=== PATIENT | female | born 1935 | race Caucasian/White ===

== ENCOUNTER → 2023-12-12 10:47 | Outpatient (REF) | payer MEDICARE, BC, SELFPAY ==
[2023-12-12 12:33] LABS: NT-proBNP 1240 pg/ml
[2023-12-12 13:20] LABS: ALT (SGPT) < 10 U/L (0-35); AST (SGOT) 16 U/L (14-36); Albumin 4.3 g/dl (3.5-5.0); Alkaline Phosphatase 121 U/L (38-126); Blood Urea Nitrogen 19 mg/dl (7-17); Calcium 10.5 mg/dl (8.4-10.2); Carbon Dioxide 27 mmol/L (22-30); Chloride 105 mmol/L (98-107); Glucose 93 mg/dl (70-99); Potassium 4.2 mmol/L (3.5-5.1); Sodium 137 mmol/L (135-145); Total Bilirubin 1.4 mg/dl (0.2-1.3); Total Protein 6.9 g/dl (6.3-8.2); eGFR > 60.00
[2023-12-12 13:33] LABS: Vitamin D, 25-OH*** 62.2 ng/mL (30-80)
[2023-12-14 02:31] LABS: Beta-2-Microglobulin 4.2 mg/L (<=3.0)
[2023-12-14 22:33] LABS: Alpha 1 Globulin 0.28 g/dL (0.19-0.46); Alpha 2 Globulin 0.69 g/dL (0.48-1.05); Free Kappa Light Chains,Quant 104.47 mg/L (3.30-19.40); Free Lambda Light Chains,Quant 13.04 mg/L (5.71-26.30); IgA 112 mg/dL (68-408); IgG 976 mg/dL (768-1632); IgM 60 mg/dL (35-263); Immunofixation Electrophoresis IFE Done; Kappa/Lambda Fr Light Ratio 8.01 (0.26-1.65); Monoclonal Protein 0.26 g/dL (<=0.00); Total Protein-Electrophoresis 6.8 g/dL (6.3-8.2)
== END ==
LOC: REG 10:47
PROVIDERS: ATTENDING PHYSICIAN Internal Medicine Hematology & Oncology; FAMILY PHYSICIAN Internal Medicine Cardiovascular Disease; REFERRING PHYSICIAN Specialist
DX: D47.2 Monoclonal gammopathy (principal); M81.0 Age-related osteoporosis without current pathological fracture; N20.0 Calculus of kidney; I10 Essential (primary) hypertension
CPT/HCPCS: 36415; 74018; 80053; 82232; 82306; 82784; 83521; 83880; 84155; 84165; 86334

== ENCOUNTER → 2024-01-16 08:44 | Outpatient (REF) | payer MEDICARE, BC, SELFPAY ==
[2024-01-16 10:13] LABS: % Basophils 1.1 % (0-2); % Eosinophils 5.6 % (0-6); % Immature Granulocytes 0.3 % (0-0.5); % Lymphocytes 21.8 % (20.5-51.1); % Monocytes 9.1 % (1.7-9.3); % Neutrophils 62.1 % (42.2-75.2); Absolute Basophils 0.1 10^3/uL (0-0.2); Absolute Eosinophils 0.4 10^3/uL (0-0.7); Absolute Lymphocytes 1.4 10^3/uL (1.2-3.4); Absolute Monocytes 0.6 10^3/uL (0.1-0.6); Hematocrit 38.3 % (37.0-47.0); Hemoglobin 12.9 g/dL (12.0-16.0); Mean Corp Hgb Conc. 33.7 g/dL (33.0-37.0); Mean Corpuscular Hgb 27.8 pg (27.0-31.0); Mean Corpuscular Volume 82.5 fL (81.0-99.0); Mean Platelet Volume 11.6 fL (7.4-10.4); Nucleated Red Blood Cells % 0 %; Platelet Count 144 10^3/uL (130-400); Red Blood Cell Count 4.64 10^6/uL (4.20-5.40); Red Cell Dist. Width 15.9 % (11.5-14.5); White Blood Cell Count 6.5 10^3/uL (4.8-10.8)
[2024-01-16 10:46] LABS: ALT (SGPT) < 10 U/L (0-35); AST (SGOT) 16 U/L (14-36); Alkaline Phosphatase 110 U/L (38-126); Blood Urea Nitrogen 21 mg/dl (7-17); Calcium 10.4 mg/dl (8.4-10.2); Carbon Dioxide 26 mmol/L (22-30); Chloride 104 mmol/L (98-107); Glucose 102 mg/dl (70-99); Potassium 3.5 mmol/L (3.5-5.1); Sodium 139 mmol/L (135-145); Total Bilirubin 1.2 mg/dl (0.2-1.3); Total Protein 6.5 g/dl (6.3-8.2); eGFR > 60.00
== END ==
LOC: REG 08:44
PROVIDERS: ATTENDING PHYSICIAN Internal Medicine Hematology & Oncology; FAMILY PHYSICIAN Family Medicine
DX: D47.2 Monoclonal gammopathy (principal); M81.0 Age-related osteoporosis without current pathological fracture
CPT/HCPCS: 36415; 80053; 85025

== ENCOUNTER → 2024-02-02 16:36 | Outpatient (REF) | payer MEDICARE, BC, SELFPAY ==
[2024-02-02 17:37] LABS: % Basophils 1.1 % (0-2); % Eosinophils 3.5 % (0-6); % Immature Granulocytes 0.6 % (0-0.5); % Lymphocytes 21.6 % (20.5-51.1); % Monocytes 11.4 % (1.7-9.3); % Neutrophils 61.8 % (42.2-75.2); Absolute Basophils 0.1 10^3/uL (0-0.2); Absolute Eosinophils 0.3 10^3/uL (0-0.7); Absolute Lymphocytes 1.5 10^3/uL (1.2-3.4); Absolute Monocytes 0.8 10^3/uL (0.1-0.6); Absolute Neutrophils 4.4 10^3/uL (1.4-6.5); Hematocrit 37.9 % (37.0-47.0); Hemoglobin 12.5 g/dL (12.0-16.0); Mean Corpuscular Hgb 27.4 pg (27.0-31.0); Mean Corpuscular Volume 82.9 fL (81.0-99.0); Mean Platelet Volume 11.1 fL (7.4-10.4); Nucleated Red Blood Cells % 0 %; Platelet Count 206 10^3/uL (130-400); Red Blood Cell Count 4.57 10^6/uL (4.20-5.40); Red Cell Dist. Width 15.2 % (11.5-14.5); White Blood Cell Count 7.1 10^3/uL (4.8-10.8)
[2024-02-02 17:53] LABS: ALT (SGPT) < 10 U/L (0-35); AST (SGOT) 14 U/L (14-36); Albumin 4.2 g/dl (3.5-5.0); Alkaline Phosphatase 104 U/L (38-126); Blood Urea Nitrogen 18 mg/dl (7-17); Calcium 10.7 mg/dl (8.4-10.2); Carbon Dioxide 28 mmol/L (22-30); Chloride 100 mmol/L (98-107); Glucose 96 mg/dl (70-99); Potassium 3.9 mmol/L (3.5-5.1); Sodium 134 mmol/L (135-145); Total Bilirubin 1.2 mg/dl (0.2-1.3); Total Protein 6.6 g/dl (6.3-8.2); eGFR > 60.00
== END ==
LOC: REG 16:36
PROVIDERS: ATTENDING PHYSICIAN Physician Assistant Medical; FAMILY PHYSICIAN Family Medicine
DX: R53.1 Weakness (principal); G93.39 Other post infection and related fatigue syndromes; U09.9 Post COVID-19 condition, unspecified; R05.3 Chronic cough
CPT/HCPCS: 36415; 71046; 80053; 85025

== ENCOUNTER 2024-05-11 19:52 | Emergency (ER) | payer MEDICARE, BC, SELFPAY ==
[2024-05-11 20:00] VITALS: BP 141/71
--- NOTE | 2024-05-11 22:00 | ED.GENMED ---
History of Present Illness
General
Chief Complaint: Nose Bleed
Source: patient and family
Exam Limitations: none
Time Seen by Provider: 05/11/24 21:36
Nursing documentation reviewed up to this point in time: agreed with
History of Present Illness
History of Present Illness:
88-year-old female presents to the emergency department complaining of nosebleed from her left nostril, she is on Eliquis. This began 1 to 2 hours ago. She denies any difficulty breathing.
Past History
Past History
ED Past Medical History: Arrthythmia (Atrial fibrillation), Asthma, GERD, HTN, Hypercholesterolemia and Other (Parkinson's)
ED Past Surgical History: Cardiac (Pacemaker, Loop Monitor), Orthopedic and Urological
Social History
Tobacco: Non-smoker
Alcohol: None
Personal:
Living: with family
Review of Systems
Review of Systems
Allergies reviewed?: Yes
All Other Systems: Not applicable
Constitutional: Reports no symptoms
EENT: Reports other (Nosebleed)
Respiratory: Reports no symptoms; Denies cough or trouble breathing
Cardiac: Reports no symptoms
ABD/GI: Reports no symptoms
: Reports no symptoms
Musculoskeletal: Reports no symptoms
Skin: Reports no symptoms
Neurological: Reports no symptoms
Endocrine: Reports no symptoms
Hematologic/Lymphatic: Reports no symptoms
Psychiatric: Reports no symptoms
Phy Exam
Physical Exam
Physical Exam:
88-year-old female with no respiratory distress, erythema at left nare, no active bleeding noted
Course
Vital Signs
Initial and Last Documented VS:
Initial Vital Signs
Temp Pulse Resp BP Pulse Ox
98.0 F 63 20 141/71 96
05/11/24 20:00 05/11/24 20:00 05/11/24 20:00 05/11/24 20:00 05/11/24 20:00
Last Documented Vital Signs
Temp Pulse Resp BP Pulse Ox
98.0 F 60 20 141/55 99
05/11/24 20:00 05/11/24 22:50 05/11/24 22:50 05/11/24 22:50 05/11/24 22:50
Procedures
Nosebleed
Drug treatment: Lidocaine and Epinephrine
Treatment: local pressure applied
Post treatment bleeding: none- good control
MDM/Problems Addressed
Differential Diagnosis Includes:
Posterior epistaxis, anterior epistaxis
MDM/Problems Addressed:
88-year-old female with epistaxis, resolved with pressure, epinephrine and lidocaine. Patient will hold off on Eliquis for 2 days.
Chronic conditions affecting care: Arrhythmia
Acute Exacerbation and/or Progression of Chronic Illness: Arrhythmia and Other (Anticoagulation state)
*Pulse Oximetry
Patient hypoxic: no
*Critical Care Note
Total Time (30-74mins, 75-104mins- exclusive of procedures): Not Applicable
Patient Management
Social determinants of health affecting care: Living situation and Strong social support
Escalation/DeEscalation of care consider admission/obs:
Admit not indicated
ED Attending Note
-
Portions of this chart may have been created with voice recognition software.� Occasional wrong word or��sound alike� substitutions may have occurred due to the inherent limitations of voice recognition software.
Discharge Plan
Departure
Patient Disposition: Home (Routine Discharge)
Date of Disposition: 05/11/24
Time of Disposition: 23:02
Patient with high blood pressure during this ER visit?: Yes
Condition: Good
Discharge Problem:
Acute anterior epistaxis
Instructions: Nosebleeds (DC), BLOOD PRESSURE
Prescriptions:
No Action
pramipexole 0.5 MG tablet
0.5 mg PO BID
sertraline 25 MG tablet
25 mg PO DAILY
montelukast 10 MG tablet
10 mg PO QPM
Eliquis 5 MG tablet
5 mg PO BID
furosemide 40 MG tablet
20 mg PO DAILY
carvedilol [Coreg] 25 MG tablet
25 mg PO BID
atorvastatin 10 MG tablet
10 mg PO Q48H
amlodipine 2.5 MG tablet
2.5 mg PO DAILY@1300
cyanocobalamin (vitamin B-12) 1,000 MCG/ML solution
1,000 mcg SC MONTHLY
Rx Instructions:
first of each month
melatonin 5 MG tablet
5 mg PO HSPRN PRN (Reason: sleep)
sennosides-docusate sodium [Senexon-S] 8.6-50 mg tablet
1 tab PO DAILYPRN PRN (Reason: constipation)
acetaminophen [Pain Reliever ES(acetaminophn)] 500 mg tablet
1,000 mg PO Q8HPRN PRN (Reason: arthritic pain)
pantoprazole [Protonix] 40 mg Tablet,Delayed Release (Dr/Ec)
20 mg PO DAILY
lidocaine [Aspercreme (lidocaine)] 4 % adhesive patch,medicated
1 patch topical DAILYPRN PRN (Reason: lower back pains)
Rx Instructions:
apply to left shoulder
levalbuterol HCl 1.25 mg/3 mL Solution For Nebulization
1.25 mg INHALATION R BID
Jardiance 10 mg Tablet
10 mg PO DAILY
carbidopa-levodopa 25-100 mg Tablet
1.5 tab PO QID
levofloxacin 250 mg tablet
250 mg PO DAILY 2 Days Qty: 2 0RF
Referrals:
Lisset Julien MD [Family Provider] - Call in 1-3 days for appt
Jarret Riddle MD [Active] - Call in 1-3 days for appt
Interventions
Interventions:
*Risk Screen - Suicide Last Done: 05/11/24 19:54
*General Assessment Last Done: 05/11/24 20:00
*Neglect/Abuse Screening Last Done: 05/11/24 20:00
ED-EENT Assessment Last Done: 05/11/24 20:12
Discharge Date and Time
Print Language: YAKUT
[2024-05-11 22:50] VITALS: BP 141/55
[2024-05-11 23:21] VITALS: BP 147/78
== END 2024-05-11 23:35 | disposition home or self-care (01) ==
LOC: EMR 19:52
PROVIDERS: EMERGENCY PHYSICIAN Emergency Medicine; FAMILY PHYSICIAN Family Medicine
DX: R04.0 Epistaxis (principal); I48.91 Unspecified atrial fibrillation; G20.A1 Parkinson's disease without dyskinesia, without mention of fluctuations; E78.00 Pure hypercholesterolemia, unspecified; J45.909 Unspecified asthma, uncomplicated; K21.9 Gastro-esophageal reflux disease without esophagitis; G43.909 Migraine, unspecified, not intractable, without status migrainosus; I11.0 Hypertensive heart disease with heart failure; I50.9 Heart failure, unspecified; G47.30 Sleep apnea, unspecified; M19.90 Unspecified osteoarthritis, unspecified site; M79.7 Fibromyalgia; E07.9 Disorder of thyroid, unspecified; D64.9 Anemia, unspecified; Z79.01 Long term (current) use of anticoagulants; Z95.0 Presence of cardiac pacemaker; Z96.652 Presence of left artificial knee joint
CPT/HCPCS: 99282; 30901

== ENCOUNTER → 2024-05-19 16:33 | Outpatient (REF) | payer MEDICARE, BC, SELFPAY ==
[2024-05-19 17:40] LABS: % Basophils 0.9 % (0-2); % Eosinophils 5.7 % (0-6); % Immature Granulocytes 0.3 % (0-0.5); % Lymphocytes 23.9 % (20.5-51.1); % Neutrophils 58.2 % (42.2-75.2); Absolute Basophils 0.1 10^3/uL (0-0.2); Absolute Eosinophils 0.4 10^3/uL (0-0.7); Absolute Lymphocytes 1.5 10^3/uL (1.2-3.4); Absolute Monocytes 0.7 10^3/uL (0.1-0.6); Absolute Neutrophils 3.7 10^3/uL (1.4-6.5); Hematocrit 39.4 % (37.0-47.0); Mean Corpuscular Hgb 27.9 pg (27.0-31.0); Mean Corpuscular Volume 84.5 fL (81.0-99.0); Nucleated Red Blood Cells % 0 %; Platelet Count 157 10^3/uL (130-400); Red Blood Cell Count 4.66 10^6/uL (4.20-5.40); Red Cell Dist. Width 14.9 % (11.5-14.5); White Blood Cell Count 6.4 10^3/uL (4.8-10.8)
[2024-05-19 18:04] LABS: NT-proBNP 2110 pg/ml
[2024-05-19 18:07] LABS: Blood Urea Nitrogen 20 mg/dl (7-17); Calcium 10.2 mg/dl (8.4-10.2); Carbon Dioxide 27 mmol/L (22-30); Chloride 100 mmol/L (98-107); Glucose 89 mg/dl (70-99); Potassium 4.4 mmol/L (3.5-5.1); Sodium 141 mmol/L (135-145); eGFR 54.87
[2024-05-19 18:18] LABS: Free T4 1.11 ng/dl (0.78-2.19)
[2024-05-19 18:33] LABS: TSH 3.07 uIU/ml (0.47-4.68)
== END ==
LOC: REG 16:33
PROVIDERS: ATTENDING PHYSICIAN Internal Medicine Cardiovascular Disease; FAMILY PHYSICIAN Family Medicine
DX: I95.1 Orthostatic hypotension (principal); E21.3 Hyperparathyroidism, unspecified; E83.52 Hypercalcemia; I10 Essential (primary) hypertension; I50.32 Chronic diastolic (congestive) heart failure; I48.91 Unspecified atrial fibrillation
CPT/HCPCS: 36415; 80048; 83880; 84439; 84443; 85025

== ENCOUNTER 2024-08-03 16:40 | Inpatient (IN) | payer MEDICARE, BC, SELFPAY ==
[2024-08-03] VITALS (11 sets, daily range): BP systolic 103–155; BP diastolic 51–113; BMI 31.5
[2024-08-03] MEDS: NSS 500 IV (11:59)
[2024-08-03] MEDS: ZOFRAN 4 MG IV (11:59)
[2024-08-03] MEDS: TYLENOL 1000 MG PO (12:00)
[2024-08-03 12:29] LABS: ALT (SGPT) < 10 U/L (0-35); AST (SGOT) 13 U/L (14-36); Albumin 3.8 g/dl (3.5-5.0); Alkaline Phosphatase 60 U/L (38-126); Blood Urea Nitrogen 18 mg/dl (7-17); Carbon Dioxide 25 mmol/L (22-30); Chloride 104 mmol/L (98-107); Glucose 127 mg/dl (70-99); Potassium 4.3 mmol/L (3.5-5.1); Sodium 138 mmol/L (135-145); Total Bilirubin 2.3 mg/dl (0.2-1.3); Total Protein 6.1 g/dl (6.3-8.2); eGFR > 60.00
[2024-08-03 12:40] LABS: COVID-19 Antigen Negative (Negative)
[2024-08-03 12:42] LABS: % Basophils 0.2 % (0-2); % Immature Granulocytes 0.4 % (0-0.5); % Lymphocytes 7.5 % (20.5-51.1); % Monocytes 8.5 % (1.7-9.3); % Neutrophils 83.4 % (42.2-75.2); Absolute Immature Granulocytes 0.1 10^3/uL (0-0.05); Absolute Lymphocytes 0.9 10^3/uL (1.2-3.4); Absolute Neutrophils 9.5 10^3/uL (1.4-6.5); Hematocrit 38.4 % (37.0-47.0); Hemoglobin 12.8 g/dL (12.0-16.0); Mean Corp Hgb Conc. 33.3 g/dL (33.0-37.0); Mean Corpuscular Hgb 28.6 pg (27.0-31.0); Mean Corpuscular Volume 85.7 fL (81.0-99.0); Mean Platelet Volume 11.7 fL (7.4-10.4); Nucleated Red Blood Cells % 0 %; Platelet Count 102 10^3/uL (130-400); Red Blood Cell Count 4.48 10^6/uL (4.20-5.40); Red Cell Dist. Width 16.4 % (11.5-14.5); White Blood Cell Count 11.4 10^3/uL (4.8-10.8)
[2024-08-03 13:35] LABS: Urine Albumin 1+ (Neg - Trace); Urine Bilirubin 1+ (Negative); Urine Character Very Cloudy (Clear); Urine Color Yellow; Urine Glucose 3+ (Negative); Urine Ketone Trace (Negative); Urine Leukocyte 2+ (Negative); Urine Nitrite Positive (Negative); Urine Occult Blood 2+ (Negative); Urine Urobilinogen 2+ (Neg - 1+)
[2024-08-03 13:54] LABS: Urine Bacteria Many (Negative); Urine White Cell >100 /HPF (0-5)
--- NOTE | 2024-08-03 14:36 | ED.GENMED ---
History of Present Illness
General
Chief Complaint: Swelling
Source: patient and family
Exam Limitations: none
Time Seen by Provider: 08/03/24 11:18
Nursing documentation reviewed up to this point in time: agreed with
History of Present Illness
History of Present Illness:
88-year-old female with past medical history of CHF hypertension hyperlipidemia pacemaker in place presenting to the emergency department today with concerns left-sided facial swelling starting yesterday some nausea as well pain to her left ear.
Also has felt lightheaded generally weak and tired. Denies any abdominal pain chest pain shortness of breath.
Past History
Past History
ED Past Medical History: Arrthythmia (Atrial fibrillation), Asthma, GERD, HTN, Hypercholesterolemia and Other (Parkinson's)
ED Past Surgical History: Cardiac (Pacemaker, Loop Monitor), Orthopedic and Urological
Social History
Tobacco: Non-smoker
Alcohol: None
Personal:
Living: with family
Review of Systems
Review of Systems
Allergies reviewed?: Yes
All Other Systems: ROS reviewed and negative except as documented in HPI and ROS
Phy Exam
Physical Exam
Physical Exam:
GENERAL: Alert , in no apparent distress
EYE: pupils equal and reactive
NECK: Supple, no significant adenopathy.
ENT: Significant swelling to the left anterior lateral mandibular region roughly 5 cm in diameter not specifically indurated or fluctuant somewhat thin to mucosa looks normal firm and tender to palpation o/p clr, mmm.
CARDIAC: Regular rate and rhythm .
LUNGS: Clear breath sounds bilaterally, no acute respiratory distress, no wheezes/rales/rhonchi
ABDOMEN: Soft, without focal tenderness, no r/g, no cvat
NEUROLOGICAL: Alert and oriented, no focal neuro deficits
SKIN: Warm and dry, skin intact.
MUSCULOSKELETAL: No edema, well perfused.
PSYCH: Normal and appropriate interaction.
Scores
Heart Failure Risk
Heart Failure Risk Score: Not Applicable
Course
Orders/Labs/Results
Orders:
Orders
08/03/24 11:32
EKG [Electrocardiogram (*1)] Urgent
Reason for Study: Fatigue / Weakness
CT Facial Bones W/ Iv Contrast Urgent
Comment:
Reason For Exam: left facial sweling
EKG- Treatment ONCE
0.9% Sodium Chloride 500 ml [Nss] 500 ml IV BOLUS
Ondansetron Injectable [Zofran] 4 mg IV NOW STA
08/03/24 11:38
CBC/With Diff [Complete Blood Count/With Diff] Urgent
CMP [Comprehensive Metabolic Panel] Urgent
Troponin I Urgent
08/03/24 11:56
Acetaminophen [Tylenol] 1,000 mg PO NOW STA
08/03/24 12:15
COVID-19 Antigen Urgent
Source: Nasal Swab
Influenza A+B Rapid Molecular Urgent
JOHN Source: Nasal Swab
Specimen Description:
08/03/24 13:27
Urinalysis Reflex To Culture Urgent
Date Specimen was Collected: 08/03/24
Time Specimen was Collected: 11:36
Urine Microscopic Reflex Cult Urgent
Urine Culture Urgent
JOHN Source: U
Specimen Description:
Date Specimen was Collected: 08/03/24
Time Specimen was Collected: 11:36
08/03/24 14:30
Piperacillin/Tazo 3.375 Gram [Zosyn] 3.375 gram in 50 ml IV NOW
Abnormal Lab Results
08/03/24 08/03/24
11:38 13:27
WBC 11.4 H 10^3/uL
(4.8-10.8)
RDW 16.4 H %
(11.5-14.5)
Plt Count 102 L 10^3/uL
(130-400)
MPV 11.7 H fL
(7.4-10.4)
Abs Immat Gran (auto) 0.1 H 10^3/uL
(0-0.05)
Absolute Neuts (auto) 9.5 H 10^3/uL
(1.4-6.5)
Absolute Lymphs (auto) 0.9 L 10^3/uL
(1.2-3.4)
Absolute Monos (auto) 1.0 H 10^3/uL
(0.1-0.6)
Neutrophils % 83.4 H %
(42.2-75.2)
Lymphocytes % 7.5 L %
(20.5-51.1)
BUN 18 H mg/dl
(7-17)
Glucose 127 H mg/dl
(70-99)
Total Bilirubin 2.3 H mg/dl
(0.2-1.3)
AST 13 L U/L
(14-36)
Total Protein 6.1 L g/dl
(6.3-8.2)
Urine Ketones Trace A
(Negative)
Ur Occult Blood Reflex 2+ A
(Negative)
Urine Nitrite (Reflex) Positive A
(Negative)
Urine Bilirubin 1+ A
(Negative)
Urine Urobilinogen 2+ A
(Neg - 1+)
Leukocyte Esterase Rfl 2+ A
(Negative)
Urine RBC 3-6 A /HPF
(0-2)
Urine WBC (Reflex) >100 A /HPF
(0-5)
Urine Bacteria (Reflex) Many A
(Negative)
Urine Glucose 3+ A
(Negative)
Urine Albumin (Reflex) 1+ A
(Neg - Trace)
08/03/24 11:38
08/03/24 11:38
Vital Signs
Initial and Last Documented VS:
Initial Vital Signs
Temp Pulse Resp BP Pulse Ox
99.2 F 63 18 128/56 96
08/03/24 09:10 08/03/24 09:10 08/03/24 09:10 08/03/24 09:10 08/03/24 09:10
Last Documented Vital Signs
Temp Pulse Resp BP Pulse Ox
102.1 F H 70 18 119/53 94
08/03/24 11:50 08/03/24 13:24 08/03/24 09:10 08/03/24 13:24 08/03/24 13:24
MDM/Problems Addressed
MDM/Problems Addressed:
88-year-old female presenting to the emergency department today with concerns of facial swelling since yesterday also nausea lightheadedness generalized weakness fatigue. On arrival here patient febrile was given Tylenol for this slight white count
with left shift labs otherwise without specific emergent features urinalysis also appears to be infected. CT scan of the face performed with potential sialoadenitis versus abscess however favoring the former. Concern the patient systemic symptoms
advanced age plan to start IV antibiotic mid for monitoring and further assessment.
*Critical Care Note
Total Time (30-74mins, 75-104mins- exclusive of procedures): Not Applicable
ED Attending Note
-
Portions of this chart may have been created with voice recognition software.� Occasional wrong word or��sound alike� substitutions may have occurred due to the inherent limitations of voice recognition software.
Discharge Plan
Departure
Patient Disposition: Admit
Date of Disposition: 08/03/24
Time of Disposition: 14:39
Admit to: Med/Surg
Admit to doctor: Fahad
Presentation/result/management discussed w/ accepting MD/DO: Hospitalist
Patient with high blood pressure during this ER visit?: No
Condition: Good
Covid-19: Not Applicable
Discharge Problem:
Sialadenitis, Acute UTI
Prescriptions:
No Action
pramipexole 0.5 MG tablet
0.5 mg PO BID
sertraline 25 MG tablet
25 mg PO DAILY
montelukast 10 MG tablet
10 mg PO QPM
Eliquis 5 MG tablet
5 mg PO BID
furosemide 40 MG tablet
20 mg PO DAILY
carvedilol [Coreg] 25 MG tablet
25 mg PO BID
atorvastatin 10 MG tablet
10 mg PO Q48H
amlodipine 2.5 MG tablet
2.5 mg PO DAILY@1300
cyanocobalamin (vitamin B-12) 1,000 MCG/ML solution
1,000 mcg SC MONTHLY
Rx Instructions:
first of each month
melatonin 5 MG tablet
5 mg PO HSPRN PRN (Reason: sleep)
sennosides-docusate sodium [Senexon-S] 8.6-50 mg tablet
1 tab PO DAILYPRN PRN (Reason: constipation)
acetaminophen [Pain Reliever ES(acetaminophn)] 500 mg tablet
1,000 mg PO Q8HPRN PRN (Reason: arthritic pain)
pantoprazole [Protonix] 40 mg Tablet,Delayed Release (Dr/Ec)
20 mg PO DAILY
lidocaine [Aspercreme (lidocaine)] 4 % adhesive patch,medicated
1 patch topical DAILYPRN PRN (Reason: lower back pains)
Rx Instructions:
apply to left shoulder
levalbuterol HCl 1.25 mg/3 mL Solution For Nebulization
1.25 mg INHALATION R BID
Jardiance 10 mg Tablet
10 mg PO DAILY
carbidopa-levodopa 25-100 mg Tablet
1.5 tab PO QID
levofloxacin 250 mg tablet
250 mg PO DAILY 2 Days Qty: 2 0RF
Referrals:
Lisset Julien MD [Family Provider] -
Interventions
Interventions:
*Risk Screen - Suicide Last Done: 08/03/24 09:10
*General Assessment Last Done: 08/03/24 09:10
*Neglect/Abuse Screening Last Done: 08/03/24 09:10
*ED COVID-19 Vaccine History Last Done: 08/03/24 11:32
ED- Cardiac Assessment Last Done: 08/03/24 11:26
ED- Pulmonary Assessment Last Done: 08/03/24 11:26
ED-Skin Assessment Last Done: 08/03/24 12:12
Discharge Date and Time
Print Language: JAPANESE
[2024-08-03] MEDS: ZOSYN 50 IV (14:46)
--- NOTE | 2024-08-03 15:06 | HPS.HSE ---
Family Physician
-
Family Physician: Lisset Julien
Chief Complaint
-
Left-sided facial swelling lower mandible, lightheaded, weakness ongoing since
History of Present Illness
88-year-old female complaining of left-sided facial swelling starting yesterday 08/02/2024 with pain to the left ear and some nausea. She also reports feeling lightheaded and weak since Thanksgiving 07/28/2024. In the ER she has 102.1F temperature.
She is complaining of acute on chronic urinary incontinence she wears a depends with 2 poise pads however for the past couple days she has been having urgency, dysuria and increased frequency. I spoke with her and her son and advised him we will
also do a bladder scan to assess for urinary retention. I advised them to follow-up as an outpatient with urology her son Christopher states she sees Dr. Ashford for prior kidney stones. She denies headache, sore throat, chest pain, palpitations,
shortness of breath, cough, abdominal pain, vomiting, diarrhea, rash.
She has past medical history chronic diastolic heart failure, paroxysmal A-fib on Eliquis, permanent pacemaker, asthma, HTN, HLD, Parkinson's, falls, right elbow ORIF GERD, anxiety, B12 deficiency, anemia, migraines, chronic back pain, PHYLICIA
noncompliant with CPAP, obesity UTI with sepsis 07/01/2023 with left-sided nonobstructing renal stone 3.5 mm with CX positive for Kluyvera ascorbata resistant to augmentin ampicillin unasyn cefazolin ceftriaxone (sensitive to cefepime) intermediate
resistance ciprofloxacin.
Medical History
Past Medical History
Past Medical History: Reports Other
Additional Past Medical History:
A-Fib paroxysmal
Pulmonary Hypertension
Asthma
PHYLICIA NONCOMPLIANT WITH CPAP
GERD
Hypertension
Parkinson's Disease
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
Falls secondary to Parkinson's right elbow fracture status post ORIF 2022
B12 deficiency, anemia, migraines
UTI with sepsis July 2023 growing Sarwat martinez with multiple drug resistance
Anxiety / Depression
Obesity
Hyperparathyroidism
Nephrolithiasis 07/01/2023 with left-sided nonobstructing renal stone 3.5 mm
Past Surgical History: Reports Other
Additional Past Surgical History:
PPM Placement
Lithotripsy
Left TKA
Social History
Tobacco: Non-smoker
Alcohol: None
Drug: None
Personal: Single
Living: With Family (Lives with son house has a stair lift)
Employment: Retired
Family History
Family History: Not pertinent
Allergies / Home Medications
Allergies reflects when Allergies were last updated in [employer].
Home Medications with original date entered in [employer]
Allergy/Medication List:
Allergies
Allergy/AdvReac Type Severity Reaction Status Date / Time
No Known Allergies Allergy Verified 06/18/22 12:42
Home Medications
apixaban 5 mg tablet (Eliquis) 5 mg PO BID Blood clot prevention/tx 06/21/17
montelukast 10 mg tablet 10 mg PO QPM Asthma 06/21/17
pramipexole 0.5 mg tablet 0.5 mg PO BID Parkinson's Disease 06/21/17
sertraline 25 mg tablet 25 mg PO DAILY Mental Health/Anxiety 06/21/17
denosumab 60 mg/mL subcutaneous syringe (Prolia) 60 mg SQ [id number] bone health 11/04/18
furosemide 40 mg tablet 20 mg PO DAILY Fluid retention/Swelling 11/06/19
amlodipine 2.5 mg tablet 2.5 mg PO DAILY@1300 Blood pressure 06/13/21
atorvastatin 10 mg tablet 10 mg PO Q48H High cholesterol 06/13/21
carbidopa 25 mg-levodopa 100 mg tablet 1.5 tab PO QID@09,13,17,21 PARKINSONS 06/13/21
carvedilol 25 mg tablet (Coreg) 25 mg PO BID Blood pressure 06/13/21
cyanocobalamin (vitamin B-12) 1,000 mcg/mL injection solution 1,000 mcg SC MONTHLY Supplement 06/13/21
melatonin 5 mg tablet 5 mg PO HS Sleep 06/13/21
pantoprazole 20 mg tablet,delayed release (Protonix) 20 mg PO DAILY Gastrointestinal issue 06/13/21
multivitamin with minerals-folic acid 120 mcg chewable tablet (Centrum Adult 50 Plus Fresh-Fruity) 1 tab PO DAILY Supplement 05/18/22
acetaminophen 500 mg tablet (Pain Reliever Extra Strength (acetaminophen)) 1,000 mg PO Q8@0600,1400,2200 PRN arthritic pain 08/26/22
denosumab 60 mg/mL subcutaneous syringe (Prolia) 60 mg SC [id number] 08/26/22
sennosides 8.6 mg-docusate sodium 50 mg tablet (Senexon-S) 1 tab-cap PO DAILY PRN constipation 08/26/22
Review of Systems
-
History Source: Patient and Family (Son Christopher at bedside)
A 12 point ROS was completed and negative except as noted: Yes
Constitutional: Reports Fever, Fatigue and Chills
EENT: Reports Other (Swollen left lower mandible x 1 day); Denies Sore Throat or Runny Nose
Respiratory: Denies Cough or Trouble Breathing
Cardiac: Denies Chest Pain, Diaphoresis or Palpitations
Abdomen/GI: Denies Abdominal Pain, Nausea, Vomiting, Diarrhea, Constipated, Bloody Stools or Black Stools
: Reports Dysuria (X 2 to 3 days), Frequency (Acute on chronic), Incontinence (Chronic) and Urgency (X 2 to 3 days)
Musculoskeletal: Reports Edema (Trace bilateral legs); Denies Joint Pain
Skin: Denies Itching or Rash
Neurological: Reports Weakness (Generalized); Denies Dizzy or Headache
Endocrine: Reports No Symptoms
Hematologic/Lymphatic: Reports No Symptoms
Psych: Reports Calm
Physical Exam
Vital Signs
Vital Signs
Temp Pulse Resp BP Pulse Ox
102.1 F H 60 18 118/54 92
08/03/24 11:50 08/03/24 14:30 08/03/24 09:10 08/03/24 14:00 08/03/24 14:30
Physical Exam
General: Comfortable and Conversant; No Pain, Fever or Chills
HEENT: NormoCephalic, Anicteric, Moist mucous membranes, PERRLA, [place] Conjunctivae and No Ptosis
Respiratory: Clear; No Wheezes, Rales or Rhonchi
Cardiac: S1/S2, Regular Rhythm and Peripheral Edema (Trace); No Murmur, Rub or Gallop
GI: Soft, Non Distended, Normal Bowel Sounds, Tender (Suprapubic) and No Hepatosplenomegaly
Rectal: Deferred by Provider
Genito-urinary: No costovertebral tender
Musculoskeletal: No Clubbing, No Cyanosis, Edema, Left Lower Extremity (Trace) and Edema, Right Lower Extremity (Trace); No Edema, Left Upper Extremity or Edema, Right Upper Extremity
Skin: Warm and Dry; No Rash
Neuro: AO x 3, Nonfocal/grossly intact, Cranial Nerves Intact, No Sensory Deficits and Tremors (Chronic tremors head arm secondary to Parkinson's disease); No Slurred Speech or Facial Droop
Psych: Calm
Laboratory Results
-
08/03/24 11:38
08/03/24 11:38
Laboratory Results
Total Bilirubin 2.3 mg/dl (0.2-1.3) H 08/03/24 11:38
AST 13 U/L (14-36) L 08/03/24 11:38
ALT < 10 U/L (0-35) 08/03/24 11:38
Alkaline Phosphatase 60 U/L (38-126) 08/03/24 11:38
Troponin I 0.020 ng/ml 08/03/24 11:38
Impression/Plan
-
Impression/plan:
Admit to telemetry
#Acute sepsis 2/2 UTI
UTI with sepsis July 2023 growing Kluyvera ascorbata with multiple drug resistance to augmentin ampicillin unasyn cefazolin ceftriaxone (sensitive to cefepime) intermediate resistance ciprofloxacin.
#Chronic urinary incontinence
WBC 11.4 with left shift, 102.1F, HR 60, BP 118/54
UA positive nitrate, +2 leukocyte, WBC> 100, many bacteria
-Follow urine culture
--NSS 1 L given in ER
-IV NSS 60 cc an hour x 1 L
-IV Zosyn given in ER will change to cefepime and Flagyl given UTI and siloadenitis
-Blood cultures x 2
-Bladder scan protocol to look for urinary retention
-Recommend follow-up with urology outpatient for her chronic urinary incontinence (son Christopher at bedside will follow up with Dr. Ashford who is treated her for kidney stones in the past)
#Left facial swelling secondary to left submandibular sialoadenitis
-IV Zosyn given in ER will change to cefepime and Flagyl given UTI and siloadenitis
-IV Tylenol 1000 mg given in ER for fever continue Tylenol as needed
-Will give mechanical soft diet until pain resolves
-Warm compresses to face
-Encouraged lemon drops or sour heads
CT facial bones with IV contrast
1. Inflammatory fat stranding and edema with asymmetric involvement of the left lower facial soft tissues. No drainable fluid collection within the limitations of metallic streak artifact from dental amalgam.
2. Mild asymmetric enlargement and enhancement of the left submandibular gland. Left submandibular lymph nodes are mildly enlarged.
3. The right submandibular gland, and the bilateral parotid glands are unremarkable. The aerodigestive tract is patent.
4. Periapical lucency of the left maxillary first molar. Small periapical lucency of the left mandibular second molar.
5. The bilateral orbits are unremarkable.
6. 1.4 cm mucous retention cyst in the right maxillary sinus. The mastoid air cells are clear.
#HTN�benign
BP 118/54
Coreg 25 mg twice daily, losartan 12.5 mg daily with hold parameters
#A-Fib paroxysmal
-Continue Eliquis 5 mg twice daily, Coreg 25 mg twice daily, losartan 12.5 mg daily with hold parameters
#Chronic diastolic heart failure
-I/O, daily weights
-HOLD Jardiance 10 mg daily, furosemide 20 mg twice daily
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
#Pulmonary Hypertension hx
-On echo 07/17/2023 pulm arterial pressure 50-52 mmHg
#Asthma-no acute exacerbation
-Continue lev albuterol 1.25 mg every 6 as needed
-Continue montelukast 10 mg p.o. every afternoon
#PHYLICIA on CPAP
#GERD
-Continue Protonix 20 mg daily
#Parkinson's Disease
#Falls with chronic ambulatory dysfunction secondary to Parkinson's
# right elbow fracture status post ORIF 2022
-Continue pramipexole 0.5 mg twice daily
-PT/OT consult
#B12 deficiency
#Anemia
-Patient on B12 1000 mcg injections monthly last dose 07/04/2024
#Anxiety / Depression
-Continue Zoloft 25 mg daily
#Obesity due to excess calorie consumption
-Affects all aspects of care
#Hyperparathyroidism hx
#Nephrolithiasis 07/01/2023 with left-sided nonobstructing renal stone 3.5 mm
#Insomnia
Hold melatonin
DVT prophylaxis
Subcu Lovenox
Full code
--- NOTE | 2024-08-03 16:14 | W.PN.UPDATE ---
Update Note
Progress Note Update
This is an addendum to the H&P written by Natacha Gross on 08/03/2024. Patient seen examined independently with TAR KETTLE RUNNER.
88-year-old female past medical history of paroxysmal atrial fibrillation, chronic HFpEF, Parkinson's disease, asthma, obstructive sleep apnea, GERD, hypertension, hyperlipidemia, presenting with few days of dysuria, suprapubic pain as well as left
facial swelling.
She has had frequent UTIs on Jardiance. Urinalysis consistent with UTI. Recent urine culture showed Kluyvera ascorbata which was resistant to ampicillin, Unasyn, ciprofloxacin, ceftriaxone. IV fluids, urine culture, blood cultures pending.
Patient clinically septic secondary to UTI.
Also with left submandibular sialoadenitis on CT scan. Cefepime/Flagyl to cover UTI and sialoadenitis.
[2024-08-03] MEDS: NSS 1000 IV (18:28)
[2024-08-03] MEDS: SINEMET 25-100 1.5 TABLET PO ×2 (18:35→21:37)
[2024-08-03] MEDS: SINGULAIR 10 MG PO (18:36)
[2024-08-03] MEDS: STERILE WATER FOR INJECTION 10 ML IV (18:39)
[2024-08-03] MEDS: MAXIPIME 1000 MG IV (18:39)
[2024-08-03] MEDS: FLAGYL 500 MG 100 IV (18:41)
[2024-08-03] MEDS: ELIQUIS 5 MG PO (20:30)
[2024-08-03] MEDS: MIRAPEX, GENERIC 0.5 MG PO (20:31)
[2024-08-03] MEDS: COREG 25 MG PO (20:32)
[2024-08-04] VITALS (8 sets, daily range): BP systolic 94–135; BP diastolic 49–71; PULSE 60; O2SAT 96; BMI 32.3
[2024-08-04] MEDS: FLAGYL 500 MG 100 IV ×3 (02:49→18:00)
[2024-08-04 03:43] LABS: Urine Albumin 1+ (Neg - Trace); Urine Bilirubin 1+ (Negative); Urine Character Slightly Cloudy (Clear); Urine Color Amber; Urine Glucose 2+ (Negative); Urine Ketone Trace (Negative); Urine Leukocyte 2+ (Negative); Urine Nitrite Positive (Negative); Urine Occult Blood 3+ (Negative); Urine Specific Gravity 1.015 (<1.030); Urine Urobilinogen 2+ (Neg - 1+)
[2024-08-04] MEDS: TYLENOL 650 MG PO ×2 (04:05→21:22)
[2024-08-04] MEDS: MAXIPIME 1000 MG IV ×2 (05:35→18:00)
[2024-08-04] MEDS: STERILE WATER FOR INJECTION 10 ML IV ×2 (05:35→18:01)
[2024-08-04] MEDS: TYLENOL 325 MG PO (06:08)
[2024-08-04 06:56] LABS: Urine Amorphous Seen; Urine Bacteria Many (Negative); Urine Squamous Cell >30 /LPF (Few); Urine White Cell >100 /HPF (0-5)
[2024-08-04] MEDS: PROTONIX 20 MG PO (08:10)
[2024-08-04] MEDS: SINEMET 25-100 1.5 TABLET PO ×4 (08:11→21:27)
[2024-08-04] MEDS: COZAAR 12.5 MG PO (08:11)
[2024-08-04] MEDS: MIRAPEX, GENERIC 0.5 MG PO ×2 (08:11→21:26)
[2024-08-04] MEDS: COREG 25 MG PO (08:12)
[2024-08-04] MEDS: ZOLOFT 25 MG PO (08:12)
[2024-08-04] MEDS: ELIQUIS 5 MG PO ×2 (08:12→21:23)
[2024-08-04] MEDS: OSCAL CAL 500 1000 MG PO (08:12)
[2024-08-04] MEDS: DESENEX/MITRAZOL/ZEASORB 1 APPLIC TOPICAL ×2 (08:12→21:23)
[2024-08-04] MEDS: LIPITOR 10 MG PO (08:12)
[2024-08-04] MEDS: VITAMIN D3 (cholecalciferol) 50 MCG PO (08:12)
[2024-08-04 08:50] LABS: % Basophils 0.4 % (0-2); % Eosinophils 0.5 % (0-6); % Immature Granulocytes 0.3 % (0-0.5); % Lymphocytes 8.6 % (20.5-51.1); % Neutrophils 81.2 % (42.2-75.2); Absolute Eosinophils 0.1 10^3/uL (0-0.7); Absolute Lymphocytes 0.8 10^3/uL (1.2-3.4); Absolute Monocytes 0.8 10^3/uL (0.1-0.6); Absolute Neutrophils 7.5 10^3/uL (1.4-6.5); Hematocrit 34.9 % (37.0-47.0); Hemoglobin 11.4 g/dL (12.0-16.0); Mean Corp Hgb Conc. 32.7 g/dL (33.0-37.0); Mean Corpuscular Hgb 28.7 pg (27.0-31.0); Mean Corpuscular Volume 87.9 fL (81.0-99.0); Mean Platelet Volume 11.4 fL (7.4-10.4); Nucleated Red Blood Cells % 0 %; Platelet Count 90 10^3/uL (130-400); Red Blood Cell Count 3.97 10^6/uL (4.20-5.40); Red Cell Dist. Width 16.7 % (11.5-14.5); White Blood Cell Count 9.3 10^3/uL (4.8-10.8)
[2024-08-04 09:21] LABS: ALT (SGPT) < 10 U/L (0-35); AST (SGOT) 11 U/L (14-36); Alkaline Phosphatase 56 U/L (38-126); Blood Urea Nitrogen 17 mg/dl (7-17); Calcium 9.3 mg/dl (8.4-10.2); Carbon Dioxide 23 mmol/L (22-30); Chloride 105 mmol/L (98-107); Estimated Creatinine Clearance 49 ml/min; Glucose 97 mg/dl (70-99); Potassium 4.2 mmol/L (3.5-5.1); Sodium 136 mmol/L (135-145); Total Bilirubin 2.3 mg/dl (0.2-1.3); Total Protein 5.2 g/dl (6.3-8.2); eGFR > 60.00
--- NOTE | 2024-08-04 10:48 | PTOTSP ---
ST Acute Care Evaluation
Pt currently presents with clinical signs of moderate oral dysphagia characterized by inadequate labial seal on L side, reduced oral sensation on L side, and inadequate bolus formation resulting in oral residue in L buccal cavity that is
inconsistently recognized by pt and inconsistently cleared with strategies trialed with RECYCLING OPERATIONS MANAGER prompting.
Recommendations:
- DOWNGRADE pt's diet to PUREED SOLIDS and continue with thin liquids and meds as tolerated.
- Aspiration precautions: 1:1 assist with PO intake; small bites/sips; alternate bites/sips; slow intake rate.
- RECYCLING OPERATIONS MANAGER to f/u re: diet tolerance and trial diet upgrades.
--- NOTE | 2024-08-04 11:21 | W.PN.HOSP.TC ---
Addendum entered and electronically signed by Diaz Wilson MD 08/04/24 16:46:
88-year-old female presented to the hospital with left-sided facial swelling and also had some inguinal area discomfort.
I saw and evaluated the patient. I reviewed the resident�s note and agree with findings and plan as documented in the resident�s note except for changes in my documentation
Facial bone CT-left facial soft tissue inflammatory fat stranding and edema. Left mild submandibular gland with asymmetric enlargement and enhancement reactive or secondary to cellulitis. There could be periapical dental lucencies no rim-enhancing
abscess.
On examination awake alert oriented
Left submandibular area edema, I could not find any dental caries
Cardiovascular system S1-S2 appreciated
Chest clear to auscultation
No abdominal discomfort or tenderness, no CVA angle tenderness
Inguinal area with fungal rash
No lower extremity edema
Echo 07/17/2023-EF 55 to 60%. Mild concentric LVH. Mildly dilated RV. Severe by atrial dilatation. Thickened mitral valve leaflets with mitral annular calcification mild MR. Trileaflet sclerotic aortic valve without stenosis or regurgitation.
Mild TR. pulmonary hypertension. 50 to 52 mmHg. Interatrial septal aneurysm. No shunt
# Sepsis likely secondary to sialadenitis. Present on admission
No stones noted on CAT scan
Continue IV antibiotics
Warm compresses
Oral hygiene/oral care
Wait for blood cultures
If not getting better may need oral surgery or ENT evaluation. Watch on antibiotics
Sour candy/lemon/cloverdale recommended
# UTI
Gram-negative bacilli on cultures
Blood cultures pending
Continue cefepime
Check ultrasound of the kidneys with history of nephrolithiasis
# Mild thrombocytopenia-watch. Likely secondary infection
# Fungal infection in the inguinal area-Desenex to the skin folds
# Pacemaker
# Chronic HFpEF. Hold Lasix and SGLT2 inhibitor in the setting of sepsis. Continue decreased dose of Coreg and hold losartan
# Paroxysmal atrial fibrillation-history of ablation continue Eliquis and decreased dose of Coreg
# B12 deficiency-continue replacement
# Migraines
# Sleep apnea-continue CPAP
# Obesity with a BMI of 32
# Parkinson's disease-continue Sinemet and pramipexole
# Depression-continue sertraline
# Hyperlipidemia-continue statin
# GERD-continue PPI
# Fibromyalgia
# DVT prophylaxis-Eliquis
# Full code
Discussed with son and updated regarding the plan
Original Note:
Today's Communication/Plan
-
continue iv abx
warm compresses
Assessment / Plan
Assessment / Plan
88-year-old female past medical history of paroxysmal atrial fibrillation, chronic HFpEF, Parkinson's disease, asthma, obstructive sleep apnea, GERD, hypertension, hyperlipidemia, presented with few days of dysuria, suprapubic pain as well as left
facial swelling.
#Acute sepsis 2/2 UTI
UTI with sepsis July 2023 growing Kluyvera ascorbata with multiple drug resistance to augmentin ampicillin unasyn cefazolin ceftriaxone (sensitive to cefepime) intermediate resistance ciprofloxacin.
#Chronic urinary incontinence
-WBC wnl now
-UA positive nitrate, +2 leukocyte, WBC> 100, many bacteria
-urine culture pending
-s/p 2 bags of NSS
-IV cefepime and Flagyl given UTI and siloadenitis
-Bladder scan protocol to look for urinary retention
-Recommend follow-up with urology outpatient for her chronic urinary incontinence (son Christopher at bedside will follow up with Dr. Ashford who is treated her for kidney stones in the past)
#Left facial swelling secondary to left submandibular sialoadenitis
-IV cefepime and Flagyl given UTI and siloadenitis
-continue Tylenol as needed
-Will give mechanical soft diet until pain resolves IDDSI 4 per speech recs
-Warm compresses to face ordered
-Encouraged lemon drops or sour heads
CT facial bones with IV contrast
1. Inflammatory fat stranding and edema with asymmetric involvement of the left lower facial soft tissues. No drainable fluid collection within the limitations of metallic streak artifact from dental amalgam.
2. Mild asymmetric enlargement and enhancement of the left submandibular gland. Left submandibular lymph nodes are mildly enlarged.
3. The right submandibular gland, and the bilateral parotid glands are unremarkable. The aerodigestive tract is patent.
4. Periapical lucency of the left maxillary first molar. Small periapical lucency of the left mandibular second molar.
5. The bilateral orbits are unremarkable.
6. 1.4 cm mucous retention cyst in the right maxillary sinus. The mastoid air cells are clear.
#HTN�benign
Coreg 25 mg twice daily, losartan 12.5 mg daily with hold parameters
#A-Fib paroxysmal
-Continue Eliquis 5 mg twice daily, Coreg 25 mg twice daily, losartan 12.5 mg daily with hold parameters
#Chronic diastolic heart failure
-I/O, daily weights
-HOLD Jardiance 10 mg daily, furosemide 20 mg twice daily
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
#Pulmonary Hypertension hx
-On echo 07/17/2023 pulm arterial pressure 50-52 mmHg
#Asthma-no acute exacerbation
-Continue lev albuterol 1.25 mg every 6 as needed
-Continue montelukast 10 mg p.o. every afternoon
#PHYLICIA on CPAP
#GERD
-Continue Protonix 20 mg daily
#Parkinson's Disease
#Falls with chronic ambulatory dysfunction secondary to Parkinson's
# right elbow fracture status post ORIF 2022
-Continue pramipexole 0.5 mg twice daily
-PT/OT consult
#B12 deficiency
#Anemia
-Patient on B12 1000 mcg injections monthly last dose 07/04/2024
#Anxiety / Depression
-Continue Zoloft 25 mg daily
#Obesity due to excess calorie consumption
-Affects all aspects of care
#Hyperparathyroidism hx
#Nephrolithiasis 07/01/2023 with left-sided nonobstructing renal stone 3.5 mm
#Insomnia
Hold melatonin
DVT prophylaxis
Subcu Lovenox
Full code
Anticipated Discharge: 24 - 48 hours
Subjective/Interval History
-
Date of Service: August 04, 2024
Continues to have dysuria and mild pain on the left side of the face
Objective Data
-
Labs:
Laboratory Results
08/04/24
07:37
WBC 9.3
Hgb 11.4 L
Hct 34.9 L
Plt Count 90 L
Sodium 136
Potassium 4.2
Chloride 105
Carbon Dioxide 23
BUN 17
Creatinine 0.8
Glucose 97
Calcium 9.3
Total Bilirubin 2.3 H
AST 11 L
ALT < 10
Alkaline Phosphatase 56
Vital Signs:
Vital Signs
Temp Pulse Resp BP Pulse Ox
100.5 F H 61 18 135/63 95
08/04/24 08:13 08/04/24 08:13 08/04/24 08:13 08/04/24 08:13 08/04/24 11:03
I&O
08/03/24 08/04/24 08/05/24
06:59 06:59 06:59
Intake Total 120 / 120
Output Total 200 / 200
Balance -80 / -80
Review of Systems
-
History Source: Patient
Constitutional: Reports Fever
Genitourinary: Reports Dysuria
Physical Exam
-
General: No Apparent Distress
HEENT: Other (Left submandibular swelling)
Respiratory: Clear to Auscultation; Negative Wheezes or Rales
Cardiac: Regular Rhythm and S1/S2
GI: Soft and Nontender
Genito-urinary: No Costovertebral Tender
Neuro: Awake, Alert, Oriented and AO x 3
Psych: Calm
Data Reviewed
-
CT Scan: Report Reviewed by me
Labs: Labs Reviewed by me, Discussed with Physician and Discussed with Patient
--- NOTE | 2024-08-04 13:17 | CM ---
Alert awake oriented patient who lives with her son Christopher in a 2 story home with 2 step to enter and stair glide to bed room. She is assisted in all activities of daily living. She uses a wheelchair, walker and stair glide.
PT seen by PT and OT today with recommendation for discharge to SNF.
CM called Lanette's son, as Lanette was on the commode when I attempted to visit. Per son, he has noticed increase in weakness and advised she had a recent fall. He would be agreeable to SNF and requests [facility]. CM will discuss with Lanette to
determine her willingness to go to SNF.
Plan: CM to follow for discharge to SNF vs. home with home health pending improvement in functional status.
Pharmacy: [facility]
PCP: Dr Julien
[2024-08-04] MEDS: NSS 1000 IV (16:51)
[2024-08-04] MEDS: SINGULAIR 10 MG PO (18:00)
[2024-08-04] MEDS: COREG 12.5 MG PO (21:24)
[2024-08-05] MEDS: FLAGYL 500 MG IV (02:47)
[2024-08-05 03:26] VITALS: BP 151/68
[2024-08-05 05:34] VITALS: BMI 32.8
[2024-08-05] MEDS: STERILE WATER FOR INJECTION 10 ML IV ×2 (06:04→13:27)
[2024-08-05] MEDS: FLAGYL 500 MG 100 IV ×2 (06:04→13:24)
[2024-08-05] MEDS: MAXIPIME 1000 MG IV ×2 (06:05→13:27)
[2024-08-05 07:26] LABS: ALT (SGPT) < 10 U/L (0-35); AST (SGOT) 23 U/L (14-36); Alkaline Phosphatase 82 U/L (38-126); Blood Urea Nitrogen 19 mg/dl (7-17); Calcium 9.3 mg/dl (8.4-10.2); Carbon Dioxide 23 mmol/L (22-30); Chloride 106 mmol/L (98-107); Estimated Creatinine Clearance 57 ml/min; Glucose 98 mg/dl (70-99); Potassium 4.5 mmol/L (3.5-5.1); Sodium 136 mmol/L (135-145); Total Bilirubin 1.6 mg/dl (0.2-1.3); Total Protein 5.2 g/dl (6.3-8.2); eGFR > 60.00
[2024-08-05 07:31] VITALS: BP 163/92
[2024-08-05 07:33] LABS: % Basophils 0.7 % (0-2); % Eosinophils 3.9 % (0-6); % Immature Granulocytes 0.9 % (0-0.5); % Lymphocytes 11.7 % (20.5-51.1); % Monocytes 12.5 % (1.7-9.3); % Neutrophils 70.3 % (42.2-75.2); Absolute Basophils 0.1 10^3/uL (0-0.2); Absolute Eosinophils 0.3 10^3/uL (0-0.7); Absolute Immature Granulocytes 0.1 10^3/uL (0-0.05); Absolute Lymphocytes 0.9 10^3/uL (1.2-3.4); Absolute Monocytes 0.9 10^3/uL (0.1-0.6); Absolute Neutrophils 5.2 10^3/uL (1.4-6.5); Hematocrit 35.4 % (37.0-47.0); Hemoglobin 11.2 g/dL (12.0-16.0); Mean Corp Hgb Conc. 31.6 g/dL (33.0-37.0); Mean Corpuscular Hgb 28.1 pg (27.0-31.0); Mean Corpuscular Volume 88.7 fL (81.0-99.0); Mean Platelet Volume 11.7 fL (7.4-10.4); Nucleated Red Blood Cells % 0 %; Platelet Count 102 10^3/uL (130-400); Red Blood Cell Count 3.99 10^6/uL (4.20-5.40); Red Cell Dist. Width 16.4 % (11.5-14.5); White Blood Cell Count 7.5 10^3/uL (4.8-10.8)
--- NOTE | 2024-08-05 09:08 | W.PN.HOSP.TC ---
Addendum entered and electronically signed by Diaz Wilson MD 08/05/24 14:23:
88-year-old female presented to the hospital with left-sided facial swelling and also had some inguinal area discomfort.
I saw and evaluated the patient. I reviewed the resident�s note and agree with findings and plan as documented in the resident�s note except for changes in my documentation
Facial bone CT-left facial soft tissue inflammatory fat stranding and edema. Left mild submandibular gland with asymmetric enlargement and enhancement reactive or secondary to cellulitis. There could be periapical dental lucencies no rim-enhancing
abscess.
On examination awake alert oriented
Left submandibular left mandubular area edema, I could not find any dental caries, no palpable stones on digital palpation.
Cardiovascular system S1-S2 appreciated
Chest clear to auscultation
No abdominal discomfort or tenderness, no CVA angle tenderness
Inguinal area with extensive fungal rash, below abdominal fold fungal rash
No lower extremity edema
Echo 07/17/2023-EF 55 to 60%. Mild concentric LVH. Mildly dilated RV. Severe by atrial dilatation. Thickened mitral valve leaflets with mitral annular calcification mild MR. Trileaflet sclerotic aortic valve without stenosis or regurgitation.
Mild TR. pulmonary hypertension. 50 to 52 mmHg. Interatrial septal aneurysm. No shunt
# Facial cellulitis
Clinically looks like sialadenitis but ENT feels it is more dental source.
Oral surgery evaluation requested
No stones noted on CAT scan
Continue IV antibiotics
Warm compresses
Oral hygiene/oral care
Blood cultures negative
If not getting better may need oral surgery or ENT evaluation. Watch on antibiotics
Sour candy/lemon/cloverdale recommended
# Criteria met for sepsis present on admission
# Klebsiella UTI
Blood cultures negative so far
Continue cefepime, Flagyl
Ultrasound of the kidneys and bladder without any obstruction hydronephrosis or nephrolithiasis.
# Mild thrombocytopenia-watch. Likely secondary infection. Improving
# Fungal infection in the inguinal area-Desenex to the skin folds, extensive fungal infection. She is not sure if she also has a discharge. 1 dose of Diflucan ordered
# Pacemaker
# Chronic HFpEF. Hold Lasix and SGLT2 inhibitor in the setting of sepsis, UTI and fungal infection inguinal folds . Continue Coreg and losartan
# Paroxysmal atrial fibrillation-history of ablation continue Eliquis and Coreg
# B12 deficiency-continue replacement
# Migraines
# Sleep apnea-continue CPAP
# Obesity with a BMI of 32
# Parkinson's disease-continue Sinemet and pramipexole
# Depression-continue sertraline
# Hyperlipidemia-continue statin
# GERD-continue PPI
# Fibromyalgia
# DVT prophylaxis-Eliquis
# Full code
Resident D/W ENT and Oral surgery
Resident updated son
D/WRN
Original Note:
Today's Communication/Plan
-
continue abx
resume bp meds
one dose of fluconazole
oral surgery consult
Assessment / Plan
Assessment / Plan
88-year-old female past medical history of paroxysmal atrial fibrillation, chronic HFpEF, Parkinson's disease, asthma, obstructive sleep apnea, GERD, hypertension, hyperlipidemia, presented with few days of dysuria, suprapubic pain as well as left
facial swelling.
#Acute sepsis 2/2 UTI
UTI with sepsis July 2023 growing Kluyvera ascorbata with multiple drug resistance to augmentin ampicillin unasyn cefazolin ceftriaxone (sensitive to cefepime) intermediate resistance ciprofloxacin.
#Chronic urinary incontinence
-WBC wnl now
-UA positive nitrate, +2 leukocyte, WBC> 100, many bacteria
-urine culture pending
-s/p 3 bags of NSS- d/c iv fluids
-IV cefepime and Flagyl given UTI and possible siloadenitis
-Bladder scan protocol to look for urinary retention
-Recommend follow-up with urology outpatient for her chronic urinary incontinence (son Christopher at bedside will follow up with Dr. Ashford who is treated her for kidney stones in the past)
- 1 time fluconazole for inguinal rash
#Left facial swelling secondary to left submandibular sialoadenitis
-IV cefepime and Flagyl given UTI and siloadenitis
-continue Tylenol as needed
-Will give mechanical soft diet until pain resolves IDDSI 4 per speech recs
-Warm compresses to face ordered
-Encouraged lemon drops or sour heads
-appreciate ENT rec- they do not believe swelling is from salivary gland
-Oral surgery consulted per ENT recs
CT facial bones with IV contrast
1. Inflammatory fat stranding and edema with asymmetric involvement of the left lower facial soft tissues. No drainable fluid collection within the limitations of metallic streak artifact from dental amalgam.
2. Mild asymmetric enlargement and enhancement of the left submandibular gland. Left submandibular lymph nodes are mildly enlarged.
3. The right submandibular gland, and the bilateral parotid glands are unremarkable. The aerodigestive tract is patent.
4. Periapical lucency of the left maxillary first molar. Small periapical lucency of the left mandibular second molar.
5. The bilateral orbits are unremarkable.
6. 1.4 cm mucous retention cyst in the right maxillary sinus. The mastoid air cells are clear.
#HTN
Coreg 25 mg twice daily, resume losartan 12.5 mg daily with hold parameters
#A-Fib paroxysmal
-Continue Eliquis 5 mg twice daily, Coreg 25 mg twice daily, losartan 12.5 mg daily with hold parameters
#Chronic diastolic heart failure
-I/O, daily weights
-HOLD Jardiance 10 mg daily, furosemide 20 mg twice daily
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
#Pulmonary Hypertension hx
-On echo 07/17/2023 pulm arterial pressure 50-52 mmHg
#Asthma-no acute exacerbation
-Continue lev albuterol 1.25 mg every 6 as needed
-Continue montelukast 10 mg p.o. every afternoon
#PHYLICIA on CPAP
#GERD
-Continue Protonix 20 mg daily
#Parkinson's Disease
#Falls with chronic ambulatory dysfunction secondary to Parkinson's
# right elbow fracture status post ORIF 2022
-Continue sinemet, pramipexole 0.5 mg twice daily
-PT/OT consult
#B12 deficiency
#Anemia
-Patient on B12 1000 mcg injections monthly last dose 07/04/2024
#Anxiety / Depression
-Continue Zoloft 25 mg daily
#Obesity due to excess calorie consumption
-Affects all aspects of care
#Hyperparathyroidism hx
#Nephrolithiasis 07/01/2023 with left-sided nonobstructing renal stone 3.5 mm
#Insomnia
Hold melatonin
DVT prophylaxis
Subcu Lovenox
Full code
Anticipated Discharge: 24 - 48 hours
Subjective/Interval History
-
Date of Service: August 05, 2024
c/o Left sided facial swelling getting bigger
Objective Data
-
Labs:
Laboratory Results
08/05/24
06:18
WBC 7.5
Hgb 11.2 L
Hct 35.4 L
Plt Count 102 L
Sodium 136
Potassium 4.5
Chloride 106
Carbon Dioxide 23
BUN 19 H
Creatinine 0.7
Glucose 98
Calcium 9.3
Total Bilirubin 1.6 H
AST 23
ALT < 10
Alkaline Phosphatase 82
Vital Signs:
Vital Signs
Temp Pulse Resp BP Pulse Ox
99.6 F 65 18 163/92 95
08/05/24 07:31 08/05/24 07:31 08/05/24 07:31 08/05/24 07:31 08/05/24 07:31
I&O
08/04/24 08/05/24 08/06/24
06:59 06:59 06:59
Intake Total 120 / 120 960 / 960
Output Total 200 / 200
Balance -80 / -80 960 / 960
Review of Systems
-
History Source: Patient
Constitutional: Reports Fever (99.6)
Genitourinary: Reports Dysuria
Physical Exam
-
General: No Apparent Distress
HEENT: Other (Left submandibular swelling)
Respiratory: Clear to Auscultation; Negative Wheezes or Rales
Cardiac: Regular Rhythm and S1/S2
GI: Soft and Nontender
Genito-urinary: No Costovertebral Tender
Neuro: Awake, Alert, Oriented and AO x 3
Psych: Calm
Data Reviewed
-
Labs: Labs Reviewed by me, Discussed with Physician and Discussed with Patient
[2024-08-05] MEDS: COREG 12.5 MG PO ×2 (09:33→12:26)
[2024-08-05] MEDS: MIRAPEX, GENERIC 0.5 MG PO ×2 (09:33→19:54)
[2024-08-05] MEDS: ZOLOFT 25 MG PO (09:35)
[2024-08-05] MEDS: ELIQUIS 5 MG PO (09:35)
[2024-08-05] MEDS: VITAMIN D3 (cholecalciferol) 50 MCG PO (09:35)
[2024-08-05] MEDS: OSCAL CAL 500 1000 MG PO (09:35)
[2024-08-05] MEDS: PROTONIX 20 MG PO (09:35)
[2024-08-05] MEDS: SINEMET 25-100 1.5 TABLET PO ×4 (09:36→21:36)
[2024-08-05 11:36] VITALS: BP 157/79
[2024-08-05] MEDS: TYLENOL 650 MG PO (12:24)
[2024-08-05] MEDS: COZAAR 12.5 MG PO (12:26)
[2024-08-05] MEDS: DIFLUCAN 150 MG PO (12:27)
[2024-08-05] MEDS: DESENEX/MITRAZOL/ZEASORB 1 APPLIC TOPICAL ×2 (12:32→19:54)
[2024-08-05] MEDS: NSS IV (13:07)
--- NOTE | 2024-08-05 14:47 | CON.ORS ---
Consultation - Oral Surgery
Subjective
88-year-old female past medical history of paroxysmal atrial fibrillation, chronic HFpEF, Parkinson's disease, asthma, obstructive sleep apnea, GERD, hypertension, hyperlipidemia, presented with few days of dysuria, suprapubic pain as well as left
facial swelling. Initially swelling felt to be related to sialadenitis. ENT evaluated the patient and believed it was a dental source. She reports the swelling has been present since last and she does not have regular dental follow-up
Past Medical History
Past Medical History: Arrhythmia, Asthma, CHF, GERD, HTN, Psychiatric and Other
Past Surgical History: Other
Alcohol: None
Drug: None
Tobacco: Non-smoker
Medications / Allergies
Allergies
Allergy/AdvReac Type Severity Reaction Status Date / Time
No Known Allergies Allergy Verified 08/03/24 09:10
Active Medications
Generic Name Dose Route Start Last Admin
Trade Name Freq PRN Reason Stop Dose Admin
Acetaminophen 650 mg 08/03/24 18:00 08/05/24 12:24
Acetaminophen 325 Mg Tablet PO 08/31/24 17:59 650 mg
Q6HPRN PRN Administration
mild pain/ fever>100.5F
Apixaban 5 mg 08/03/24 20:00 08/05/24 09:35
Apixaban (Eliquis) 5 Mg Tablet PO 08/31/24 19:59 5 mg
BID SELENE Administration
Atorvastatin Calcium 10 mg 08/04/24 08:00 08/04/24 08:12
Atorvastatin (Lipitor) 10 Mg Tablet PO 09/01/24 07:59 10 mg
Q48H SELENE Administration
Calcium Carbonate 1,000 mg 08/04/24 08:00 08/05/24 09:35
Calcium Carbonate 500 Mg Tablet PO 09/01/24 07:59 1,000 mg
DAILY SELENE Administration
Carbidopa/Levodopa 1.5 tablet 08/03/24 18:00 08/05/24 13:24
Carbidopa (25 Mg)/Levodopa (100 Mg) Regular Release Tablet PO 08/31/24 17:59 1.5 tablet
QID SELENE Administration
Carvedilol 25 mg 08/05/24 20:00
Carvedilol 25 Mg Tablet PO 09/02/24 19:59
BID SELENE
Cefepime HCl 1,000 mg 08/05/24 14:00 08/05/24 13:27
Cefepime Hcl 1,000 Mg/11.3 Ml Vial IV 1,000 mg
Q8H SELENE Administration
Cholecalciferol 50 mcg 08/04/24 08:00 08/05/24 09:35
Cholecalciferol (Vitamin D3) 50 Mcg Tablet (2,000 Units) PO 09/01/24 07:59 50 mcg
DAILY SELENE Administration
Metronidazole 100 mls @ 100 mls/hr 08/05/24 06:00 08/05/24 13:24
Flagyl 500 Mg IV 100 mls
Q8H SELENE Administration
Levalbuterol HCl 1.25 mg 08/03/24 17:50
Levalbuterol 1.25 Mg/3 Ml Ampul INH
R Q6HPRN PRN
sob
Protocol
Losartan Potassium 12.5 mg 08/04/24 08:00 08/04/24 08:11
Losartan 25 Mg Tablet PO 09/01/24 07:59 12.5 mg
DAILY SELENE Administration
Melatonin 5 mg 08/03/24 17:50
Melatonin 5 Mg Tablet PO 08/31/24 17:49
HSPRN PRN
sleep
Miconazole Nitrate 0 applic 08/04/24 08:00 08/05/24 12:32
Miconazole Powder Bottle TOPICAL 09/01/24 07:59 1 applic
BID SELENE Administration
Montelukast Sodium 10 mg 08/03/24 18:00 08/04/24 18:00
Montelukast Sodium 10 Mg Tablet PO 08/31/24 17:59 10 mg
QPM SELENE Administration
Pantoprazole Sodium 20 mg 12/05/24 08:00 08/05/24 09:35
Pantoprazole 20 Mg Delayed Release Tablet PO 09/01/24 07:59 20 mg
DAILY SELENE Administration
Pramipexole Dihydrochloride 0.5 mg 08/03/24 20:00 08/05/24 09:33
Pramipexole 0.5 Mg Tablet PO 08/31/24 19:59 0.5 mg
BID SELENE Administration
Sertraline HCl 25 mg 08/04/24 08:00 08/05/24 09:35
Sertraline 25 Mg Tablet PO 09/01/24 07:59 25 mg
DAILY SELENE Administration
Sodium Chloride 0 flush 08/03/24 18:00
Sodium Chloride 0.9% (Flush) Syringe IV 08/31/24 17:59
PER PROTOCOL SELENE
Sterile Water 10 ml 08/05/24 14:00 08/05/24 13:27
Sterile Water For Injection 10 Ml Vial IV 09/02/24 13:59 10 ml
Q8H SELENE Administration
Review of Systems
Constitutional: Reports No Symptoms
Eyes: Reports No Symptoms
ENT: Reports Other (Facial pain)
Cardiovascular: Reports No Symptoms
Respiratory: Reports No Symptoms
Vital Signs
Temp Pulse Resp BP Pulse Ox
38.2 C H 62 18 157/79 96
08/05/24 11:36 08/05/24 11:36 08/05/24 11:36 08/05/24 12:26 08/05/24 12:37
Physical Exam
General: Not in Acute Distress
Extra-oral Exam: Other (Left facial swelling adjacent to mandible, decrease KAYLYN secondary to swelling)
Intra-oral Exam: Other (Exam limited due to decreased KAYLYN. Left buccal edema. Erythema adjacent to tooth #19 with purulence draining from the sulcus)
CT Results
Left facial soft tissue inflammatory fat stranding and edema. The left submandibular gland shows some asymmetric enlargement and enhancement, which could be reactive or secondary to a left submandibular sialoadenitis. Alternatively, findings could
be of dental origin given the presence of some left-sided periapical dental lucencies. However, no rim-enhancing abscess within the limitations of streak artifact from dental amalgam.
Assessment / Plan
88-year-old female past medical history of paroxysmal atrial fibrillation, chronic HFpEF, Parkinson's disease, asthma, obstructive sleep apnea, GERD, hypertension, hyperlipidemia, presented with few days of dysuria, suprapubic pain as well as left
facial swelling. The facial swelling appears to be associated with tooth #19 and there is purulence draining from around the tooth. Since the site is draining, if the swelling improves with antibiotics she can follow-up as an outpatient for
extraction of tooth #19. If it does not improve the tooth can be extracted as an inpatient with I&D. Please hold Eliquis for possible extraction/I&D
[2024-08-05 15:21] VITALS: BP 130/70
[2024-08-05] MEDS: SINGULAIR 10 MG PO (17:00)
[2024-08-05 17:37] LABS: APTT 50.1 Sec (23.4-35.0)
[2024-08-05 19:50] VITALS: BP 105/69
[2024-08-05] MEDS: UNASYN IV (19:53)
[2024-08-05] MEDS: COREG 25 MG PO (19:57)
[2024-08-05] MEDS: HEPARIN 25000 UNITS/250 ML IV (20:03)
[2024-08-05 23:50] VITALS: BP 144/75
[2024-08-06] MEDS: UNASYN IV ×4 (02:32→21:52)
[2024-08-06 02:43] LABS: APTT 89.1 Sec (23.4-35.0)
[2024-08-06 03:50] VITALS: BP 153/71
[2024-08-06 06:00] VITALS: BMI 33.6
--- NOTE | 2024-08-06 07:11 | W.PN.HOSP.TC ---
Addendum entered and electronically signed by Diaz Wilson MD 08/06/24 15:08:
88-year-old female presented to the hospital with left-sided facial swelling and also had some inguinal area discomfort.
I saw and evaluated the patient. I reviewed the resident�s note and agree with findings and plan as documented in the resident�s note except for changes in my documentation
Facial bone CT-left facial soft tissue inflammatory fat stranding and edema. Left mild submandibular gland with asymmetric enlargement and enhancement reactive or secondary to cellulitis. There could be periapical dental lucencies no rim-enhancing
abscess.
On examination awake alert oriented
Face looks better
Cardiovascular system S1-S2 appreciated
Chest clear to auscultation
No abdominal discomfort or tenderness
Inguinal area with extensive fungal rash, below abdominal fold fungal rash
No lower extremity edema
Echo 07/17/2023-EF 55 to 60%. Mild concentric LVH. Mildly dilated RV. Severe by atrial dilatation. Thickened mitral valve leaflets with mitral annular calcification mild MR. Trileaflet sclerotic aortic valve without stenosis or regurgitation.
Mild TR. pulmonary hypertension. 50 to 52 mmHg. Interatrial septal aneurysm. No shunt
# Facial cellulitis
CT looked like sialadenitis but ENT feels it is more dental source.
Oral surgery evaluation requested, feels tooth 19 is the culprit
No stones noted on CAT scan
Continue IV antibiotics
Warm compresses
Oral hygiene/oral care
Blood cultures negative
Face looks better today
# Criteria met for sepsis present on admission
# Klebsiella UTI
Blood cultures negative so far
AB changed to Unasyn. Continue
Ultrasound of the kidneys and bladder without any obstruction hydronephrosis or nephrolithiasis.
# Mild thrombocytopenia-Resolved
# Fungal infection in the inguinal area-Desenex to the skin folds, extensive fungal infection. She is not sure if she also has a discharge. Diflucan
# Pacemaker
# Chronic HFpEF. Hold SGLT2 inhibitor in the setting of sepsis, UTI and fungal infection inguinal folds . Continue Coreg and losartan. Resatrt Lasix.
# Paroxysmal atrial fibrillation-history of ablation continue Eliquis and Coreg
# B12 deficiency-continue replacement
# Migraines
# Sleep apnea-continue CPAP
# Obesity with a BMI of 32
# Parkinson's disease-continue Sinemet and pramipexole
# Depression-continue sertraline
# Hyperlipidemia-continue statin
# GERD-continue PPI
# Fibromyalgia
# DVT prophylaxis-Eliquis
# Full code
updated son
Original Note:
Today's Communication/Plan
-
heparin drip
cont abx
Assessment / Plan
Assessment / Plan
88-year-old female past medical history of paroxysmal atrial fibrillation, chronic HFpEF, Parkinson's disease, asthma, obstructive sleep apnea, GERD, hypertension, hyperlipidemia, presented with few days of dysuria, suprapubic pain as well as left
facial swelling.
#Acute sepsis 2/2 UTI; Klebsiella
UTI with sepsis July 2023 growing Kluyvera ascorbata with multiple drug resistance to augmentin ampicillin unasyn cefazolin ceftriaxone (sensitive to cefepime) intermediate resistance ciprofloxacin.
#Chronic urinary incontinence
-WBC wnl now
-UA positive nitrate, +2 leukocyte, WBC> 100, many bacteria
-s/p 3 bags of NSS- d/c iv fluids
-IV unasyn
-Bladder scan protocol to look for urinary retention
-Recommend follow-up with urology outpatient for her chronic urinary incontinence (son Christopher at bedside will follow up with Dr. Ashford who is treated her for kidney stones in the past)
- 1 time fluconazole for inguinal rash
-usg kidney and bladder unremarkable
#Left facial swelling/cellulitis
- Clinically looks submandibular sialoadenitis. ENT believes dental source
-continue Tylenol as needed
-Will give mechanical soft diet until pain resolves IDDSI 4 per speech recs
-Warm compresses to face ordered
-Encouraged lemon drops or sour heads
-Oral surgery input appreciated
- eliquis held,; started heparin drip; may need oral surgery;continue abx for now
CT facial bones with IV contrast
1. Inflammatory fat stranding and edema with asymmetric involvement of the left lower facial soft tissues. No drainable fluid collection within the limitations of metallic streak artifact from dental amalgam.
2. Mild asymmetric enlargement and enhancement of the left submandibular gland. Left submandibular lymph nodes are mildly enlarged.
3. The right submandibular gland, and the bilateral parotid glands are unremarkable. The aerodigestive tract is patent.
4. Periapical lucency of the left maxillary first molar. Small periapical lucency of the left mandibular second molar.
5. The bilateral orbits are unremarkable.
6. 1.4 cm mucous retention cyst in the right maxillary sinus. The mastoid air cells are clear.
#HTN
Coreg 25 mg twice daily, resume losartan 12.5 mg daily with hold parameters
#A-Fib paroxysmal
-hold Eliquis 5 mg twice daily; on heparin drip
#Chronic diastolic heart failure
-I/O, daily weights
-HOLD Jardiance 10 mg daily, furosemide 20 mg twice daily
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
#Pulmonary Hypertension hx
-On echo 07/17/2023 pulm arterial pressure 50-52 mmHg
#Asthma-no acute exacerbation
-Continue lev albuterol 1.25 mg every 6 as needed
-Continue montelukast 10 mg p.o. every afternoon
#PHYLICIA on CPAP
#GERD
-Continue Protonix 20 mg daily
#Parkinson's Disease
#Falls with chronic ambulatory dysfunction secondary to Parkinson's
# right elbow fracture status post ORIF 2022
-Continue sinemet, pramipexole 0.5 mg twice daily
-PT/OT consult
#B12 deficiency
#Anemia
-Patient on B12 1000 mcg injections monthly last dose 07/04/2024
#Anxiety / Depression
-Continue Zoloft 25 mg daily
#Obesity due to excess calorie consumption
-Affects all aspects of care
#Hyperparathyroidism hx
#Nephrolithiasis 07/01/2023 with left-sided nonobstructing renal stone 3.5 mm
#Insomnia
Hold melatonin
DVT prophylaxis
heparin
Full code
Anticipated Discharge: 24 - 48 hours
Subjective/Interval History
-
Date of Service: August 06, 2024
no new complaints
Objective Data
-
Labs:
Laboratory Results
08/06/24 08/06/24
02:26 06:40
WBC Pending
Hgb Pending
Hct Pending
Plt Count Pending
APTT 89.1 H
Sodium Pending
Potassium Pending
Chloride Pending
Carbon Dioxide Pending
BUN Pending
Creatinine Pending
Glucose Pending
Calcium Pending
Total Bilirubin Pending
AST Pending
ALT Pending
Alkaline Phosphatase Pending
Vital Signs:
Vital Signs
Temp Pulse Resp BP Pulse Ox
97.7 F 61 18 153/71 94
08/06/24 03:50 08/06/24 03:50 08/06/24 03:50 08/06/24 03:50 08/06/24 03:50
I&O
08/05/24 08/06/24 08/07/24
06:59 06:59 06:59
Intake Total 960 / 960 710 / 710
Balance 960 / 960 710 / 710
Review of Systems
-
History Source: Patient
Constitutional: Denies Fever
Genitourinary: Reports Dysuria and Frequency
Physical Exam
-
General: No Apparent Distress
HEENT: Other (Left submandibular swelling)
Respiratory: Clear to Auscultation; Negative Wheezes or Rales
Cardiac: Regular Rhythm and S1/S2
GI: Soft and Nontender
Genito-urinary: No Costovertebral Tender
Neuro: Awake, Alert, Oriented and AO x 3
Psych: Calm
Data Reviewed
-
Labs: Labs Reviewed by me, Discussed with Physician and Discussed with Patient
[2024-08-06 07:19] LABS: % Basophils 0.5 % (0-2); % Eosinophils 4.9 % (0-6); % Immature Granulocytes 0.5 % (0-0.5); % Lymphocytes 14.1 % (20.5-51.1); % Monocytes 10.4 % (1.7-9.3); % Neutrophils 69.6 % (42.2-75.2); Absolute Eosinophils 0.3 10^3/uL (0-0.7); Absolute Lymphocytes 0.9 10^3/uL (1.2-3.4); Absolute Monocytes 0.7 10^3/uL (0.1-0.6); Absolute Neutrophils 4.5 10^3/uL (1.4-6.5); Hematocrit 35.2 % (37.0-47.0); Hemoglobin 11.5 g/dL (12.0-16.0); Mean Corp Hgb Conc. 32.7 g/dL (33.0-37.0); Mean Corpuscular Hgb 28.5 pg (27.0-31.0); Mean Corpuscular Volume 87.1 fL (81.0-99.0); Mean Platelet Volume 11.4 fL (7.4-10.4); Nucleated Red Blood Cells % 0 %; Platelet Count 135 10^3/uL (130-400); Red Blood Cell Count 4.04 10^6/uL (4.20-5.40); Red Cell Dist. Width 16.2 % (11.5-14.5); White Blood Cell Count 6.5 10^3/uL (4.8-10.8)
[2024-08-06 07:30] VITALS: BP 161/80
[2024-08-06 07:42] LABS: ALT (SGPT) 10 U/L (0-35); AST (SGOT) 28 U/L (14-36); Albumin 3.1 g/dl (3.5-5.0); Alkaline Phosphatase 105 U/L (38-126); Blood Urea Nitrogen 15 mg/dl (7-17); Calcium 9.3 mg/dl (8.4-10.2); Carbon Dioxide 24 mmol/L (22-30); Chloride 105 mmol/L (98-107); Estimated Creatinine Clearance 58 ml/min; Glucose 91 mg/dl (70-99); Potassium 4.6 mmol/L (3.5-5.1); Sodium 138 mmol/L (135-145); Total Bilirubin 1.6 mg/dl (0.2-1.3); Total Protein 5.3 g/dl (6.3-8.2); eGFR > 60.00
[2024-08-06] MEDS: MIRAPEX, GENERIC 0.5 MG PO ×2 (08:58→21:52)
[2024-08-06] MEDS: COREG 25 MG PO ×2 (08:58→21:51)
[2024-08-06] MEDS: SINEMET 25-100 1.5 TABLET PO ×4 (08:58→21:52)
[2024-08-06] MEDS: COZAAR 12.5 MG PO (08:58)
[2024-08-06] MEDS: PROTONIX 20 MG PO (08:58)
[2024-08-06] MEDS: OSCAL CAL 500 1000 MG PO (08:58)
[2024-08-06] MEDS: VITAMIN D3 (cholecalciferol) 50 MCG PO (08:59)
[2024-08-06] MEDS: LIPITOR 10 MG PO (08:59)
[2024-08-06] MEDS: ZOLOFT 25 MG PO (08:59)
[2024-08-06] MEDS: DESENEX/MITRAZOL/ZEASORB 1 APPLIC TOPICAL ×2 (09:00→21:52)
--- NOTE | 2024-08-06 10:27 | W.PN.OMFS ---
Today's Communication
-
- Continue antibiotics, currently on Unasyn
- If she continues to improve I will schedule her for extraction of the tooth as an outpatient
- Please continue to hold Eliquis for possible extraction/I&D
Assessment / Plan
-
88F with PMH of paroxysmal atrial fibrillation, chronic HFpEF, Parkinson's disease, asthma, obstructive sleep apnea, GERD, hypertension, hyperlipidemia, presented with left facial swelling associated with tooth #19. Today her exam has improved with
a decrease in her swelling and no current drainage.
Subjective Data
-
88F with PMH of paroxysmal atrial fibrillation, chronic HFpEF, Parkinson's disease, asthma, obstructive sleep apnea, GERD, hypertension, hyperlipidemia, presented with few days of dysuria, suprapubic pain as well as left facial swelling. Today she
states that when she first woke up her face felt very painful but now she feels ok. She denies fever/chills
Objective Data
-
Vitals, I&O and Lab Results:
Vital Signs
Temp Pulse Resp BP Pulse Ox
37.1 C 60 20 161/80 96
08/06/24 07:30 08/06/24 08:58 08/06/24 07:30 08/06/24 08:58 08/06/24 07:30
Intake and Output
08/05/24 08/06/24 08/07/24
06:59 06:59 06:59
Intake Total 960 / 960 710 / 710
Balance 960 / 960 710 / 710
Intake:
Oral fluids 960 / 960 360 / 360
IV piggybacks 350 / 350
Other:
Number of approximated SMALL 1
amounts of urine
Number of approximated MODERATE 1 2
amounts of urine
How many times incontinent 1
SMALL amount urine
How many times incontinent 1 1
MODERATE amount urine
How many times incontinent 2
SATURATED amount urine
Lab Data
08/06/24 06:40
08/06/24 06:40
Plt Count 135 10^3/uL (130-400) D 08/06/24 06:40
Microbiology
08/04/24 04:00 Blood Culture - Preliminary
Blood/Venous No Growth in 48 hours- Final report to follow
08/04/24 03:17 Blood Culture - Preliminary
Blood/Venous No Growth in 48 hours- Final report to follow
08/04/24 03:25 Urine Culture - Final
Urine No Significant Growth
08/03/24 13:27 Urine Culture - Final
Urine Klebsiella pneumoniae
Physical Exam
-
Extra-oral Exam: Left facial swelling adjacent to mandible with interval decrease in swelling from previous exam, decreased KAYLYN secondary to swelling
Intra-oral Exam: Erythema adjacent to tooth #19 with no purulent drainage today. FOM soft. No fluctuance
Data Reviewed
-
Labs: Report reviewed by me
[2024-08-06 10:32] LABS: APTT 72.4 Sec (23.4-35.0)
[2024-08-06 11:00] VITALS: BP 140/59
--- NOTE | 2024-08-06 15:08 | W.PN.UPDATE ---
Update Note
Progress Note Update
Spoke with the son(terry) and updated him regarding the plan including holding eliquis, starting heparin, holding jardiance, continue abx, following recs from oral surgery, possibility that she might need out patiient tooth extraction. He verified
understanding of the plan and agreed.
[2024-08-06] MEDS: DIFLUCAN 100 MG PO (15:32)
[2024-08-06] MEDS: LASIX 20 MG PO (15:32)
[2024-08-06 15:55] VITALS: BP 126/58
[2024-08-06] MEDS: SINGULAIR 10 MG PO (17:10)
[2024-08-06 18:01] LABS: APTT 95.4 Sec (23.4-35.0)
[2024-08-06] MEDS: HEPARIN 25000 UNITS/250 ML IV (19:39)
[2024-08-06 19:59] VITALS: BP 168/79
[2024-08-06 23:30] VITALS: BP 148/71
[2024-08-07 00:49] LABS: APTT 84.7 Sec (23.4-35.0)
[2024-08-07] MEDS: UNASYN IV ×4 (02:09→20:22)
[2024-08-07 03:16] VITALS: BP 159/77
[2024-08-07 06:00] VITALS: BMI 33.5
[2024-08-07 07:24] LABS: Hematocrit 35.1 % (37.0-47.0); Hemoglobin 11.7 g/dL (12.0-16.0); Mean Corp Hgb Conc. 33.3 g/dL (33.0-37.0); Mean Corpuscular Hgb 28.6 pg (27.0-31.0); Mean Corpuscular Volume 85.8 fL (81.0-99.0); Mean Platelet Volume 10.6 fL (7.4-10.4); Platelet Count 185 10^3/uL (130-400); Red Blood Cell Count 4.09 10^6/uL (4.20-5.40); Red Cell Dist. Width 16.2 % (11.5-14.5); White Blood Cell Count 5.8 10^3/uL (4.8-10.8)
--- NOTE | 2024-08-07 07:25 | W.PN.HOSP.TC ---
Addendum entered and electronically signed by Cleve Grider MD, Resident 08/07/24 14:47:
updated son Christopher, he agreed with the plan.
Addendum entered and electronically signed by Diaz Wilson MD 08/07/24 13:06:
I saw and evaluated the patient. I reviewed the resident�s note and agree with findings and plan as documented in the resident�s note except changes in my documentation
Patient was feeling [place] better today
Cardiovascular system S1-S2 appreciated
Chest clear to auscultation
Abdomen soft and nontender
Inguinal folds are looking better-fungal rash improving
# Facial cellulitis-dental origin
CT showed CL adenitis however ENT did not feel that was the reason
She looks Much better with IV antibiotics
Oral surgery evaluation appreciated
No plans for surgery therefore switched heparin drip back to Eliquis
# Criteria met for sepsis on admission
# Klebsiella UTI-continue Unasyn
# Thrombocytopenia-resolved
# Fungal infection of inguinal area-local care as well as Diflucan given
# Pacemaker
# Chronic HFpEF-restarted Lasix. Continue Coreg and losartan. Will defer to cardiology and PCP as outpatient to see if she should remain or come off of SGLT2 inhibitor.
# B12 deficiency-continue replacement
# Migraines
# Sleep apnea-continue CPAP
# Obesity with a BMI of 32
# Parkinson's disease-continue Sinemet and pramipexole
# Depression-continue sertraline
# Hyperlipidemia-continue statin
# GERD-continue PPI
# Fibromyalgia
# DVT prophylaxis-Eliquis
# Full code
Discussed with nursing.
PT OT needs to see the patient to see if she needs to go to rehab versus home.
Original Note:
Today's Communication/Plan
-
PT/OT eval
resatrt eliquis
d/c home vs rehab? on oral abx
CM updated
Assessment / Plan
Assessment / Plan
88-year-old female past medical history of paroxysmal atrial fibrillation, chronic HFpEF, Parkinson's disease, asthma, obstructive sleep apnea, GERD, hypertension, hyperlipidemia, presented with few days of dysuria, suprapubic pain as well as left
facial swelling.
#Acute sepsis 2/2 UTI; Klebsiella
UTI with sepsis July 2023 growing Kluyvera ascorbata with multiple drug resistance to augmentin ampicillin unasyn cefazolin ceftriaxone (sensitive to cefepime) intermediate resistance ciprofloxacin.
#Chronic urinary incontinence
-WBC wnl now
-UA positive nitrate, +2 leukocyte, WBC> 100, many bacteria
-s/p 3 bags of NSS- d/c iv fluids
-IV unasyn day 3;transition to augemntin po on d/c
-Bladder scan protocol to look for urinary retention
-Recommend follow-up with urology outpatient for her chronic urinary incontinence (son Christopher at bedside will follow up with Dr. Ashford who is treated her for kidney stones in the past)
-usg kidney and bladder unremarkable
- 1 more dose of fluconazole for inguinal rash
#Left facial swelling/cellulitis
- Clinically looks submandibular sialoadenitis. ENT believes dental source
-continue Tylenol as needed
-Will give mechanical soft diet until pain resolves IDDSI 4 per speech recs
-Warm compresses to face ordered
-Encouraged lemon drops or sour heads
-Oral surgery input appreciated
- eliquis restart,; d/c heparin drip;
- tooth extraction out patient with oral surgery
continue abx for now
CT facial bones with IV contrast
1. Inflammatory fat stranding and edema with asymmetric involvement of the left lower facial soft tissues. No drainable fluid collection within the limitations of metallic streak artifact from dental amalgam.
2. Mild asymmetric enlargement and enhancement of the left submandibular gland. Left submandibular lymph nodes are mildly enlarged.
3. The right submandibular gland, and the bilateral parotid glands are unremarkable. The aerodigestive tract is patent.
4. Periapical lucency of the left maxillary first molar. Small periapical lucency of the left mandibular second molar.
5. The bilateral orbits are unremarkable.
6. 1.4 cm mucous retention cyst in the right maxillary sinus. The mastoid air cells are clear.
#HTN
Coreg 25 mg twice daily, resume losartan 12.5 mg daily with hold parameters
#A-Fib paroxysmal
-Eliquis 5 mg twice daily
#Chronic diastolic heart failure
-I/O, daily weights
-HOLD Jardiance 10 mg daily, resume furosemide 20 mg twice daily
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
#Pulmonary Hypertension hx
-On echo 07/17/2023 pulm arterial pressure 50-52 mmHg
#Asthma-no acute exacerbation
-Continue lev albuterol 1.25 mg every 6 as needed
-Continue montelukast 10 mg p.o. every afternoon
#PHYLICIA on CPAP
#GERD
-Continue Protonix 20 mg daily
#Parkinson's Disease
#Falls with chronic ambulatory dysfunction secondary to Parkinson's
# right elbow fracture status post ORIF 2022
-Continue sinemet, pramipexole 0.5 mg twice daily
-PT/OT consult
#B12 deficiency
#Anemia
-Patient on B12 1000 mcg injections monthly last dose 07/04/2024
#Anxiety / Depression
-Continue Zoloft 25 mg daily
#Obesity due to excess calorie consumption
-Affects all aspects of care
#Hyperparathyroidism hx
#Nephrolithiasis 07/01/2023 with left-sided nonobstructing renal stone 3.5 mm
#Insomnia
Hold melatonin
DVT prophylaxis
heparin
Full code
Anticipated Discharge: Within 24 hours
Subjective/Interval History
-
Date of Service: August 07, 2024
no new complaints
Objective Data
-
Labs:
Laboratory Results
08/07/24 08/07/24
00:29 06:55
WBC 5.8
Hgb 11.7 L
Hct 35.1 L
Plt Count 185 D
APTT 84.7 H Pending
Sodium Pending
Potassium Pending
Chloride Pending
Carbon Dioxide Pending
BUN Pending
Creatinine Pending
Glucose Pending
Calcium Pending
Vital Signs:
Vital Signs
Temp Pulse Resp BP Pulse Ox
97.9 F 60 18 159/77 96
08/07/24 03:16 08/07/24 03:16 08/07/24 03:16 08/07/24 03:16 08/07/24 03:16
I&O
08/06/24 08/07/24 08/08/24
06:59 06:59 06:59
Intake Total 710 / 710 1801 / 1801
Balance 710 / 710 1801 / 1801
Review of Systems
-
History Source: Patient
Constitutional: Denies Fever
Genitourinary: Reports Frequency
Physical Exam
-
General: No Apparent Distress
HEENT: Other (Left submandibular swelling- improved)
Respiratory: Clear to Auscultation; Negative Wheezes or Rales
Cardiac: Regular Rhythm and S1/S2
GI: Soft and Nontender
Genito-urinary: No Costovertebral Tender
Neuro: Awake, Alert, Oriented and AO x 3
Psych: Calm
Data Reviewed
-
Labs: Labs Reviewed by me, Discussed with Physician and Discussed with Patient
[2024-08-07 07:55] VITALS: BP 179/86
[2024-08-07 08:03] LABS: Blood Urea Nitrogen 13 mg/dl (7-17); Calcium 9.5 mg/dl (8.4-10.2); Carbon Dioxide 28 mmol/L (22-30); Chloride 106 mmol/L (98-107); Estimated Creatinine Clearance 58 ml/min; Glucose 92 mg/dl (70-99); Potassium 4.2 mmol/L (3.5-5.1); Sodium 139 mmol/L (135-145); eGFR > 60.00
[2024-08-07 08:24] LABS: APTT 112.5 Sec (23.4-35.0)
[2024-08-07] MEDS: PROTONIX 20 MG PO (08:34)
[2024-08-07] MEDS: OSCAL CAL 500 1000 MG PO (08:34)
[2024-08-07] MEDS: COREG 25 MG PO ×2 (08:34→20:23)
[2024-08-07] MEDS: SINEMET 25-100 1.5 TABLET PO ×4 (08:34→21:35)
[2024-08-07] MEDS: VITAMIN D3 (cholecalciferol) 50 MCG PO (08:35)
[2024-08-07] MEDS: ZOLOFT 25 MG PO (08:35)
[2024-08-07] MEDS: COZAAR 12.5 MG PO (08:35)
[2024-08-07] MEDS: MIRAPEX, GENERIC 0.5 MG PO ×2 (08:35→20:24)
[2024-08-07] MEDS: DESENEX/MITRAZOL/ZEASORB 1 APPLIC TOPICAL ×2 (08:48→20:23)
[2024-08-07] MEDS: LASIX 20 MG PO ×3 (08:50→16:55)
--- NOTE | 2024-08-07 08:51 | W.PN.OMFS ---
Today's Communication
-
-Ok to discharge regarding her facial infection
-No inpatient surgery planned, ok to restart Claude
-I will schedule her for extraction of tooth #19 as an outpatient
-Please discharge on Augmentin
Assessment / Plan
-
88F with PMH of paroxysmal atrial fibrillation, chronic HFpEF, Parkinson's disease, asthma, obstructive sleep apnea, GERD, hypertension, hyperlipidemia, presented with left facial swelling associated with tooth #19. Today her exam has improved with
a decrease in her swelling and no current drainage. I will schedule her for extraction of tooth #19 as an outpatient.
Subjective Data
-
88F with PMH of paroxysmal atrial fibrillation, chronic HFpEF, Parkinson's disease, asthma, obstructive sleep apnea, GERD, hypertension, hyperlipidemia, presented with few days of dysuria, suprapubic pain as well as left facial swelling. She denies
facial pain today. She denies fever/chills
Objective Data
-
Vitals, I&O and Lab Results:
Vital Signs
Temp Pulse Resp BP Pulse Ox
36.4 C 60 20 159/77 97
08/07/24 07:55 08/07/24 08:34 08/07/24 07:55 08/07/24 08:34 08/07/24 07:55
Intake and Output
08/06/24 08/07/24 08/08/24
06:59 06:59 06:59
Intake Total 710 / 710 1801 / 1801
Balance 710 / 710 1801 / 1801
Intake:
Oral fluids 360 / 360 1200 / 1200
IV piggybacks 350 / 350 601 / 601
Other:
Number of approximated SMALL 1 1
amounts of urine
Number of approximated MODERATE 2 3 2
amounts of urine
How many times incontinent 1
SMALL amount urine
How many times incontinent 1 1
MODERATE amount urine
How many times incontinent 2 1
SATURATED amount urine
Lab Data
08/07/24 06:55
08/07/24 06:55
Plt Count 185 10^3/uL (130-400) D 08/07/24 06:55
Microbiology
08/04/24 04:00 Blood Culture - Preliminary
Blood/Venous No Growth in 72 hours- Final report to follow
08/04/24 03:17 Blood Culture - Preliminary
Blood/Venous No Growth in 72 hours- Final report to follow
Physical Exam
-
Extra-oral Exam: Minimal left facial swelling adjacent to mandible with interval decrease in swelling from previous exam, slightly decreased KAYLYN improved from prior exam
Intra-oral Exam: Erythema adjacent to tooth #19 with no purulent drainage. FOM soft. No fluctuance
Data Reviewed
-
Labs: Report reviewed by me
[2024-08-07 11:00] VITALS: BP 149/82
[2024-08-07] MEDS: DIFLUCAN 100 MG PO (11:39)
[2024-08-07] MEDS: ELIQUIS 5 MG PO ×2 (11:43→20:24)
[2024-08-07 13:59] VITALS: BP 143/63
[2024-08-07 15:30] VITALS: BP 94/66
--- NOTE | 2024-08-07 15:56 | CM ---
CM following re: d/c planning.
Per therapy, recs for SNF.
Pt's first choice is [facility], referral has been sent.
DC cannot admit today, CM will outreach in AM to confirm bed availability and arrange transfer.
[2024-08-07] MEDS: SINGULAIR 10 MG PO (16:56)
[2024-08-07 23:21] VITALS: BP 152/70
[2024-08-08] MEDS: UNASYN IV ×3 (02:25→15:14)
[2024-08-08 06:00] VITALS: BMI 33.2
[2024-08-08 06:47] VITALS: BP 169/81
[2024-08-08 08:14] LABS: Hematocrit 36.6 % (37.0-47.0); Mean Corp Hgb Conc. 32.8 g/dL (33.0-37.0); Mean Corpuscular Hgb 28.6 pg (27.0-31.0); Mean Corpuscular Volume 87.1 fL (81.0-99.0); Mean Platelet Volume 10.5 fL (7.4-10.4); Platelet Count 200 10^3/uL (130-400); Red Cell Dist. Width 16.1 % (11.5-14.5)
[2024-08-08] MEDS: PROTONIX 20 MG PO (08:38)
[2024-08-08] MEDS: VITAMIN D3 (cholecalciferol) 50 MCG PO (08:39)
[2024-08-08] MEDS: OSCAL CAL 500 1000 MG PO (08:40)
[2024-08-08] MEDS: MIRAPEX, GENERIC 0.5 MG PO (08:40)
[2024-08-08] MEDS: SINEMET 25-100 1.5 TABLET PO ×2 (08:40→13:13)
[2024-08-08] MEDS: COREG 25 MG PO (08:41)
[2024-08-08] MEDS: ZOLOFT 25 MG PO (08:41)
[2024-08-08] MEDS: COZAAR 12.5 MG PO (08:41)
[2024-08-08] MEDS: LIPITOR 10 MG PO (08:41)
[2024-08-08 08:43] LABS: Blood Urea Nitrogen 9 mg/dl (7-17); Calcium 9.7 mg/dl (8.4-10.2); Carbon Dioxide 30 mmol/L (22-30); Chloride 103 mmol/L (98-107); Estimated Creatinine Clearance 67 ml/min; Glucose 96 mg/dl (70-99); Sodium 139 mmol/L (135-145); eGFR > 60.00
[2024-08-08] MEDS: DESENEX/MITRAZOL/ZEASORB 1 APPLIC TOPICAL (08:48)
[2024-08-08] MEDS: ELIQUIS PO ×2 (08:50→11:29)
--- NOTE | 2024-08-08 09:16 | W.PN.HOSP.TC ---
Addendum entered and electronically signed by Len Girard MD 08/08/24 16:25:
Seen and examined by me independently in collaboration with the medical writer.
Lab data and imaging data reviewed.
Addendum as below :
Patient with improved left jaw pain. Afebrile. White count normal. Switch to oral Augmentin and follow-up with the dentist as an outpatient for extraction of infected tooth.
Asymptomatic from standpoint. Finished antibiotics course of 5 days for UTI.
Medically stable for discharge to rehab.
Total time of DC 35 min.
Original Note:
Today's Communication/Plan
-
Planning d/c pending bed availability at rehab. CM aware
Assessment / Plan
Assessment / Plan
88-year-old female past medical history of paroxysmal atrial fibrillation, chronic HFpEF, Parkinson's disease, asthma, obstructive sleep apnea, GERD, hypertension, hyperlipidemia, presented with few days of dysuria, suprapubic pain as well as left
facial swelling.
#Acute sepsis 2/2 UTI; Klebsiella
Criteria met for sepsis on admission
UTI with sepsis July 2023 growing Kluyvera ascorbata with multiple drug resistance to augmentin ampicillin unasyn cefazolin ceftriaxone (sensitive to cefepime) intermediate resistance ciprofloxacin.
#Chronic urinary incontinence
-WBC wnl now
-UA positive nitrate, +2 leukocyte, WBC> 100, many bacteria
-s/p 3 bags of NSS- d/c iv fluids
-IV unasyn day 4;transition to augemntin po on d/c
-Bladder scan protocol to look for urinary retention
-Recommend follow-up with urology outpatient for her chronic urinary incontinence (son Christopher at bedside will follow up with Dr. Ashford who is treated her for kidney stones in the past)
-usg kidney and bladder unremarkable
- s/p 3 doses fluconazole for inguinal rash
#Left facial swelling/cellulitis
- Clinically looks submandibular sialoadenitis. ENT believes dental source
-continue Tylenol as needed
-Will give mechanical soft diet until pain resolves IDDSI 4 per speech recs
-Warm compresses to face ordered
-Encouraged lemon drops or sour heads
-Oral surgery input appreciated
- eliquis restarted,; d/c heparin drip;
- tooth extraction out patient with oral surgery; they will call to schedule the appt.
continue abx for now
CT facial bones with IV contrast
1. Inflammatory fat stranding and edema with asymmetric involvement of the left lower facial soft tissues. No drainable fluid collection within the limitations of metallic streak artifact from dental amalgam.
2. Mild asymmetric enlargement and enhancement of the left submandibular gland. Left submandibular lymph nodes are mildly enlarged.
3. The right submandibular gland, and the bilateral parotid glands are unremarkable. The aerodigestive tract is patent.
4. Periapical lucency of the left maxillary first molar. Small periapical lucency of the left mandibular second molar.
5. The bilateral orbits are unremarkable.
6. 1.4 cm mucous retention cyst in the right maxillary sinus. The mastoid air cells are clear.
#HTN
Coreg 25 mg twice daily, resume losartan 12.5 mg daily with hold parameters
#A-Fib paroxysmal
-Eliquis 5 mg twice daily
#Chronic diastolic heart failure
-I/O, daily weights
-HOLD Jardiance 10 mg daily, resume furosemide 20 mg twice daily
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
-defer to cardiology and PCP as outpatient to see if she should remain or come off of SGLT2 inhibitor
#Pulmonary Hypertension hx
-On echo 07/17/2023 pulm arterial pressure 50-52 mmHg
#Asthma-no acute exacerbation
-Continue lev albuterol 1.25 mg every 6 as needed
-Continue montelukast 10 mg p.o. every afternoon
#PHYLICIA on CPAP
#GERD
-Continue Protonix 20 mg daily
#Parkinson's Disease
#Falls with chronic ambulatory dysfunction secondary to Parkinson's
# right elbow fracture status post ORIF 2022
-Continue sinemet, pramipexole 0.5 mg twice daily
-PT/OT consult
#B12 deficiency
#Anemia
-Patient on B12 1000 mcg injections monthly last dose 07/04/2024
#Anxiety / Depression
-Continue Zoloft 25 mg daily
#Obesity due to excess calorie consumption
-Affects all aspects of care
#Hyperparathyroidism hx
#Nephrolithiasis 07/01/2023 with left-sided nonobstructing renal stone 3.5 mm
#Insomnia
Hold melatonin
DVT prophylaxis
heparin
Full code
Anticipated Discharge: Today
Subjective/Interval History
-
Date of Service: August 08, 2024
nose bleed after sneezing, resolved on its own.
Objective Data
-
Labs:
Laboratory Results
08/08/24
07:34
WBC 6.0
Hgb 12.0
Hct 36.6 L
Plt Count 200
Sodium 139
Potassium 4.0
Chloride 103
Carbon Dioxide 30
BUN 9
Creatinine 0.6
Glucose 96
Calcium 9.7
Vital Signs:
Vital Signs
Temp Pulse Resp BP Pulse Ox
98.8 F 65 20 169/81 96
08/08/24 06:47 08/08/24 08:41 08/08/24 06:47 08/08/24 08:41 08/08/24 06:47
I&O
08/07/24 08/08/24 08/09/24
06:59 06:59 06:59
Intake Total 1801 / 1801 1200 / 1200
Balance 1800 1200 / 1200
Review of Systems
-
History Source: Patient
Constitutional: Denies Fever
Genitourinary: Reports Frequency
Physical Exam
-
General: Well Developed and No Apparent Distress
HEENT: Other (Left submandibular swelling- improved)
Respiratory: Clear to Auscultation; Negative Wheezes or Rales
Cardiac: Regular Rhythm and S1/S2
GI: Soft and Nontender
Genito-urinary: No Costovertebral Tender
Neuro: Awake, Alert, Oriented and AO x 3
Psych: Calm
Data Reviewed
-
Labs: Labs Reviewed by me, Discussed with Physician and Discussed with Patient
[2024-08-08] MEDS: LASIX PO (11:29)
[2024-08-08] MEDS: ELIQUIS 5 MG PO (13:17)
--- NOTE | 2024-08-08 14:11 | CM ---
Addendum entered by Shanon Joshua 08/08/24 14:20:
MARCELA spoke with Lanette's son to make him aware that ambulance transport has been arranged for 5:30pm today.
Original Note:
MARCELA contacted [facility] to determine bed availability for transfer today. Lanette has been accepted for admission. MARCELA spoke with Lanette and her son about discharge to [facility] today. Ambulance transport requested. Forms for transport and [facility]
completed and provided to [employer] for coordination of care.
Transfer time to [facility] is scheduled for 5:30pm today.
Plan: Discharge to [facility] for rehab services today via ambulance.
[facility] report: [phone]
[facility]
--- NOTE | 2024-08-08 14:58 | PTCARENOTE ---
called [facility] for this pt going at 1731 via ambulance and there was no answer. Will try again.
[2024-08-08 15:13] VITALS: BP 141/60
[2024-08-08] MEDS: LASIX 20 MG PO (15:15)
--- NOTE | 2024-08-08 15:19 | W.DCSUMMARY ---
Discharge Summary
Discharge Data
Date of Admission: 08/03/24
Date of Discharge: 08/08/24
-
Pending Results: No
Hospital Course
Discharging Physician : Cleve Grider MD ; Len Girard MD
Disposition : SNF( [facility])
Primary care physician : Lisset Julien
Principal Discharge diagnosis : Acute sepsis 2/2 UTI; Klebsiella, Left facial swelling/cellulitis
Chronic Discharge diagnosis : Thrombocytopenia, fungal infection of inguinal area, pacemaker, chronic HFpEF, B12 deficiency, migraine, sleep apnea, obesity, Parkinson's, depression, hyperlipidemia, GERD, fibromyalgia.
Hospital Course : 88-year-old female presented with left-sided facial swelling started on 08/02/2024 with pain to the left ear and some nausea. She also reports feeling lightheaded and weak since Thanksgiving 07/28/2024. In the ER she had a tempt
of 102.1F. She also complained of acute on chronic urinary incontinence she wears a depends with 2 poise pads but for few days she was having having urgency, dysuria and increased frequency. CT facial bone with IV contrast was performed which
showed concerns for left submandibular sialoadenitis. UA was positive for UTI. She was given IV Zosyn in the ER and recommended mechanical soft diet, warm compresses to the face and use of lemon drops or sour heads. Her home medications were
continued except Jardiance which was held because of recurrent UTIs and inguinal rash. She was advised to follow-up with the vallez filter operator to discuss further and explore alternate treatment options. She was admitted to [facility] and was started on
IV/cefepime and Flagyl while waiting for the cultures to come back. Urine culture showed Klebsiella pneumonia, blood culture no growth in 4 days, her antibiotics were switched to IV Unasyn which was ultimately transition to p.o. Augmentin upon
discharge. Renal and bladder ultrasound was performed for further evaluation, results below. Flu and COVID were negative upon admission. ENT was consulted for further evaluation of her left facial swelling, they believe the source is probably
infection related to a tooth and not a salivary gland issue. Oral surgery was consulted and the facial swelling appeared to be associated with tooth #19 and there was purulence draining from around the tooth. It was recommended to continue the
antibiotics and hold Eliquis in case the swelling does not improve the patient might need inpatient I&D. Luiza was started on heparin drip which was later transition back to p.o. Eliquis weeks since her swelling subsided and she was discharged
with instructions to follow-up with oral surgery for tooth extraction outpatient.
PT/OT recommended SNF upon discharge given her need for assistance with ADLs and gait. configuration management manager helped coordinating bed availability and the transport. Patient was medically stable upon discharge.
Important imaging findings :
CT facial bones with IV contrast
1. Inflammatory fat stranding and edema with asymmetric involvement of the left lower facial soft tissues. No drainable fluid collection within the limitations of metallic streak artifact from dental amalgam.
2. Mild asymmetric enlargement and enhancement of the left submandibular gland. Left submandibular lymph nodes are mildly enlarged.
3. The right submandibular gland, and the bilateral parotid glands are unremarkable. The aerodigestive tract is patent.
4. Periapical lucency of the left maxillary first molar. Small periapical lucency of the left mandibular second molar.
5. The bilateral orbits are unremarkable.
6. 1.4 cm mucous retention cyst in the right maxillary sinus. The mastoid air cells are clear
US Renal With Bladder
IMPRESSION: Bladder not fully distended, with no focal abnormality of the bladder. Ureteral jets are not visualized.
No evidence for pelvicalyceal dilation bilaterally.
Benign-appearing left renal cysts, with lower pole cyst probably having subtle peripheral calcification, Bosniak class II.
Discharge Plan
-
Patient Disposition: Fdc/SNF
Discharge Diagnosis/Procedures: Acute sepsis 2/2 UTI; Klebsiella, Left facial swelling/cellulitis
Condition: Good
Diet: Low Fat, 2 Gram Sodium and Restrict fluids to 64 oz
Activity: No restrictions
Driving Restrictions: As prior to admission
Bathing Restrictions: None
Other Services: PT and OT
Referrals:
Lisset Julien MD [Family Provider] - in less than 1 week
Chio Chiu DDS [Active] - (per Dr. Zamora notes, office will call her to schedule the appt for tooth extraction)
Additional Discharge Medication Instructions: stop jardiance until consultation with vallez filter operator.
Take amoxicillin 875/125 1 tablet by mouth twice daily- see oral surgeon for further script if needed
Prescriptions:
New
amoxicillin-pot clavulanate 875-125 mg tablet
1 tab PO BID Qty: 10 0RF
Continued
pramipexole 0.5 MG tablet
0.5 mg PO BID
sertraline 25 MG tablet
25 mg PO DAILY
montelukast 10 MG tablet
10 mg PO QPM
Eliquis 5 MG tablet
5 mg PO BID
carvedilol [Coreg] 25 MG tablet
25 mg PO BID
atorvastatin 10 MG tablet
10 mg PO Q48H
cyanocobalamin (vitamin B-12) 1,000 MCG/ML solution
1,000 mcg IM MONTHLY
Rx Instructions:
first of each month
melatonin 5 MG tablet
5 mg PO HSPRN PRN (Reason: sleep)
acetaminophen [Pain Reliever ES(acetaminophn)] 500 mg tablet
1,000 mg PO Q8HPRN PRN (Reason: arthritic pain)
levalbuterol HCl 1.25 mg/3 mL Solution For Nebulization
1.25 mg INHALATION R Q6HPRN PRN (Reason: sob)
carbidopa-levodopa 25-100 mg Tablet
1.5 tab PO QID
pantoprazole 20 mg Tablet,Delayed Release (Dr/Ec)
20 mg PO DAILY
calcium carbonate [Calcium 600] 600 mg calcium (1,500 mg) Tablet
1,200 mg PO DAILY
losartan 25 mg Tablet
12.5 mg PO DAILY
furosemide 20 mg Tablet
20 mg PO BID
cholecalciferol (vitamin D3) [Vitamin D3] 50 mcg (2,000 unit) Tablet
50 mcg PO DAILY
Zmactvwcptw-Mrrkt-VXT Complex 597-916-33-0.5 mg Tablet
1 tab PO DAILY
Discontinued
Jardiance 10 mg Tablet
10 mg PO DAILY
Discharge Orders:
Discharge Patient (As Directed); Ordered 08/08/24
Ordered By: Cleve Grider
Discharge Date and Time
Print Language: CROATIAN
== END 2024-08-08 19:28 | DRG 872 ==
LOC: 4 EAST ACU 16:40
PROVIDERS: Clinical Nurse Specialist Family Health; Hospitalist; Physician Assistant; ADMITTING PHYSICIAN Hospitalist; ATTENDING PHYSICIAN Internal Medicine; CONSULT PHYSICIAN Dentist Oral and Maxillofacial Surgery; CONSULT PHYSICIAN Otolaryngology; EMERGENCY PHYSICIAN Student in an Organized Health Care Education/Training Program; FAMILY PHYSICIAN Family Medicine
DX: A41.59 Other Gram-negative sepsis (principal); N39.0 Urinary tract infection, site not specified; I50.32 Chronic diastolic (congestive) heart failure; L03.211 Cellulitis of face; N39.41 Urge incontinence; I48.0 Paroxysmal atrial fibrillation; K04.7 Periapical abscess without sinus; I11.0 Hypertensive heart disease with heart failure; I27.20 Pulmonary hypertension, unspecified; G20.A1 Parkinson's disease without dyskinesia, without mention of fluctuations; E53.8 Deficiency of other specified B group vitamins; D64.9 Anemia, unspecified; F32.A Depression, unspecified; F41.9 Anxiety disorder, unspecified; G47.33 Obstructive sleep apnea (adult) (pediatric); G47.00 Insomnia, unspecified; E78.00 Pure hypercholesterolemia, unspecified; J45.909 Unspecified asthma, uncomplicated; K21.9 Gastro-esophageal reflux disease without esophagitis; B35.6 Tinea cruris; M79.7 Fibromyalgia; D69.6 Thrombocytopenia, unspecified; E66.09 Other obesity due to excess calories; Z68.33 Body mass index [BMI] 33.0-33.9, adult; Z11.52 Encounter for screening for COVID-19; Z95.0 Presence of cardiac pacemaker; Z96.652 Presence of left artificial knee joint; Z79.01 Long term (current) use of anticoagulants; Z79.899 Other long term (current) drug therapy; Z91.199 Patient's noncompliance with other medical treatment and regimen due to unspecified reason
CPT/HCPCS: 70487; 76770; 80048; 80053; 81003; 81015; 84484; 85025; 85027; 85730; 87040; 87077; 87086; 87186; 87502; 87811; 92610; 93005; 96361; 96365; 96375; 97116; 97162; 97166; 97530; 99285; Q9967

== ENCOUNTER → 2024-08-12 11:44 | Outpatient (REF) | payer OTHER, MEDICARE, BC, SELFPAY ==
[2024-08-12 12:46] LABS: % Basophils 0.8 % (0-2); % Eosinophils 4.6 % (0-6); % Immature Granulocytes 1.2 % (0-0.5); % Lymphocytes 30.5 % (20.5-51.1); % Monocytes 16.5 % (1.7-9.3); % Neutrophils 46.4 % (42.2-75.2); Absolute Eosinophils 0.2 10^3/uL (0-0.7); Absolute Immature Granulocytes 0.1 10^3/uL (0-0.05); Absolute Lymphocytes 1.5 10^3/uL (1.2-3.4); Absolute Monocytes 0.8 10^3/uL (0.1-0.6); Absolute Neutrophils 2.3 10^3/uL (1.4-6.5); Hematocrit 34.4 % (37.0-47.0); Hemoglobin 11.1 g/dL (12.0-16.0); Mean Corp Hgb Conc. 32.3 g/dL (33.0-37.0); Mean Corpuscular Volume 86.6 fL (81.0-99.0); Mean Platelet Volume 11.3 fL (7.4-10.4); Nucleated Red Blood Cells % 0 %; Platelet Count 206 10^3/uL (130-400); Red Blood Cell Count 3.97 10^6/uL (4.20-5.40); Red Cell Dist. Width 15.8 % (11.5-14.5)
[2024-08-12 13:08] LABS: Blood Urea Nitrogen 12 mg/dl (7-17); Calcium 9.6 mg/dl (8.4-10.2); Carbon Dioxide 34 mmol/L (22-30); Chloride 100 mmol/L (98-107); Glucose 90 mg/dl (70-99); Potassium 3.8 mmol/L (3.5-5.1); Sodium 137 mmol/L (135-145); eGFR > 60.00
== END ==
LOC: OLABP 11:44
PROVIDERS: ATTENDING PHYSICIAN Family Medicine
DX: I48.0 Paroxysmal atrial fibrillation (principal); I10 Essential (primary) hypertension; G20.A1 Parkinson's disease without dyskinesia, without mention of fluctuations; Z95.0 Presence of cardiac pacemaker; A41.9 Sepsis, unspecified organism; J45.909 Unspecified asthma, uncomplicated
CPT/HCPCS: 36415; 80048; 85025

== ENCOUNTER → 2025-01-26 09:36 | Outpatient (REF) | payer MEDICARE, BC, SELFPAY ==
[2025-01-26 10:57] LABS: % Basophils 0.6 % (0-2); % Eosinophils 2.7 % (0-6); % Immature Granulocytes 0.4 % (0-0.5); % Lymphocytes 17.4 % (20.5-51.1); % Monocytes 8.6 % (1.7-9.3); % Neutrophils 70.3 % (42.2-75.2); Absolute Basophils 0.1 10^3/uL (0-0.2); Absolute Eosinophils 0.2 10^3/uL (0-0.7); Absolute Lymphocytes 1.4 10^3/uL (1.2-3.4); Absolute Monocytes 0.7 10^3/uL (0.1-0.6); Absolute Neutrophils 5.7 10^3/uL (1.4-6.5); Hematocrit 40.8 % (37.0-47.0); Hemoglobin 13.3 g/dL (12.0-16.0); Mean Corp Hgb Conc. 32.6 g/dL (33.0-37.0); Mean Corpuscular Hgb 28.5 pg (27.0-31.0); Mean Corpuscular Volume 87.4 fL (81.0-99.0); Mean Platelet Volume 11.9 fL (7.4-10.4); Nucleated Red Blood Cells % 0 %; Platelet Count 117 10^3/uL (130-400); Red Blood Cell Count 4.67 10^6/uL (4.20-5.40); Red Cell Dist. Width 17.4 % (11.5-14.5); White Blood Cell Count 8.1 10^3/uL (4.8-10.8)
[2025-01-26 11:36] LABS: ALT (SGPT) < 10 U/L (0-35); AST (SGOT) 13 U/L (14-36); Albumin 4.2 g/dl (3.5-5.0); Alkaline Phosphatase 70 U/L (38-126); Blood Urea Nitrogen 21 mg/dl (7-17); Calcium 10.5 mg/dl (8.4-10.2); Carbon Dioxide 30 mmol/L (22-30); Chloride 106 mmol/L (98-107); Glucose 96 mg/dl (70-99); Potassium 4.4 mmol/L (3.5-5.1); Sodium 141 mmol/L (135-145); Total Bilirubin 1.7 mg/dl (0.2-1.3); Total Protein 6.6 g/dl (6.3-8.2); eGFR > 60.00
[2025-01-28 01:26] LABS: Beta-2-Microglobulin 3.2 mg/L (<=3.0)
== END ==
LOC: REG 09:36
PROVIDERS: ATTENDING PHYSICIAN Internal Medicine Hematology & Oncology; FAMILY PHYSICIAN Family Medicine; OTHER PHYSICIAN Internal Medicine Cardiovascular Disease
DX: D47.2 Monoclonal gammopathy (principal); M81.0 Age-related osteoporosis without current pathological fracture
CPT/HCPCS: 36415; 80053; 82232; 82784; 83521; 84155; 84165; 85025; 86334

== ENCOUNTER → 2025-02-09 09:48 | Outpatient (REF) | payer MEDICARE, BC, SELFPAY | LOC: RAD 09:48 | PROVIDERS: ATTENDING PHYSICIAN Internal Medicine Hematology & Oncology; FAMILY PHYSICIAN Family Medicine | DX: M81.0 Age-related osteoporosis without current pathological fracture (principal) | CPT/HCPCS: 77080 ==

== ENCOUNTER 2025-05-13 19:33 | Emergency (ER) | payer MEDICARE, BC, SELFPAY ==
[2025-05-13 19:35] VITALS: BP 176/80
[2025-05-13 21:57] VITALS: BMI 32.3
[2025-05-13 22:14] LABS: Urine Character Cloudy (Clear)
[2025-05-13 22:20] LABS: Urine Red Blood Cell 90-100 /HPF (0-2); Urine Squamous Cell 0-2 /LPF (Few)
--- NOTE | 2025-05-13 23:09 | ED.GENMED ---
History of Present Illness
General
Chief Complaint: Urinary Symptoms
Source: patient and family
Exam Limitations: none
Time Seen by Provider: 05/13/25 21:57
Nursing documentation reviewed up to this point in time: agreed with
History of Present Illness
History of Present Illness:
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 Has had history of kidney stones. Denies any fevers chest pain
shortness of breath. Denies any nausea or vomiting.
Past History
Past History
ED Past Medical History: Arrthythmia (Atrial fibrillation), Asthma, GERD, HTN, Hypercholesterolemia and Other (Parkinson's)
ED Past Surgical History: Cardiac (Pacemaker, Loop Monitor), Orthopedic and Urological
Social History
Tobacco: Non-smoker
Alcohol: None
Personal:
Living: with family
Review of Systems
Review of Systems
Allergies reviewed?: Yes
All Other Systems: ROS reviewed and negative except as documented in HPI and ROS
Phy Exam
Physical Exam
Physical Exam:
GENERAL: Alert , in no apparent distress
EYE: pupils equal and reactive
NECK: Supple, no significant adenopathy.
ENT: o/p clr, mmm.
CARDIAC: Regular rate and rhythm .
LUNGS: Clear breath sounds bilaterally, no acute respiratory distress, no wheezes/rales/rhonchi
ABDOMEN: Soft, without focal tenderness, no r/g, no cvat
NEUROLOGICAL: Alert and oriented, no focal neuro deficits
SKIN: Warm and dry, skin intact.
MUSCULOSKELETAL: No edema, well perfused.
PSYCH: Normal and appropriate interaction.
Course
Orders/Labs/Results
Orders:
Orders
05/13/25 21:03
Urinalysis Urgent
Date Specimen was Collected: 05/13/25
Time Specimen was Collected: 19:40
Urine Microscopic Urgent
Date Specimen was Collected: 05/13/25
Time Specimen was Collected: 19:40
05/13/25 22:07
CT Abd/pel Without Iv Or Oral Urgent
Comment:
Reason For Exam: back pain bloo din urine, hx of stones
05/13/25 23:07
Complete Blood Count/With Diff Urgent
Comprehensive Metabolic Panel Urgent
05/13/25 23:44
Cephalexin Monohydrate [Keflex] 500 mg PO NOW STA
Abnormal Lab Results
05/13/25 05/13/25
21:03 23:07
MCHC 32.3 L g/dL
(33.0-37.0)
RDW 15.3 H %
(11.5-14.5)
Plt Count 113 L 10^3/uL
(130-400)
MPV 11.8 H fL
(7.4-10.4)
Absolute Monos (auto) 0.7 H 10^3/uL
(0.1-0.6)
Monocytes % 10.3 H %
(1.7-9.3)
BUN 19 H mg/dl
(7-17)
Calcium 10.5 H mg/dl
(8.4-10.2)
Total Bilirubin 1.5 H mg/dl
(0.2-1.3)
Urine Ketones 1+ A
(Negative)
Urine Occult Blood 4+ A
(Negative)
Urine Nitrite Positive A
(Negative)
Ur Leukocyte Esterase 2+ A
(Negative)
Urine RBC 90-100 A /HPF
(0-2)
Urine Bacteria Many A
(Negative)
Urine Albumin 3+ A
(Neg - Trace)
05/13/25 23:07
05/13/25 23:07
Vital Signs
Initial and Last Documented VS:
Initial Vital Signs
Temp Pulse Resp BP Pulse Ox
97.7 F 62 18 176/80 97
05/13/25 19:35 05/13/25 19:35 05/13/25 19:35 05/13/25 19:35 05/13/25 19:35
Last Documented Vital Signs
Temp Pulse Resp BP Pulse Ox
97.7 F 61 18 159/81 99
05/13/25 19:35 05/13/25 23:12 05/13/25 23:12 05/13/25 23:12 05/13/25 23:12
MDM/Problems Addressed
MDM/Problems Addressed:
89-year-old female presenting with concerns of blood in the urine as well as flank pain. Blood in urine yesterday flank pain today. On arrival hypertensive otherwise vital signs are normal. Urinalysis showing significant red blood cells but no
significant white blood cells. The son as well as the patient was very concerned that in the past she has had similar symptoms that led to significant urinary tract infections. At this point unclear if this represents a urinary tract infection but
CT scan does show significant inflammation does have positive nitrites. Plan to start an antibiotic with close outpatient follow-up. Otherwise is stable for discharge return precautions given.
*Pulse Oximetry
SaO2: 97
Oxygen Mode of Delivery: Room air
Patient hypoxic: no (99)
*Critical Care Note
Total Time (30-74mins, 75-104mins- exclusive of procedures): Not Applicable
ED Attending Note
-
Portions of this chart may have been created with voice recognition software.� Occasional wrong word or��sound alike� substitutions may have occurred due to the inherent limitations of voice recognition software.
Discharge Plan
Departure
Patient Disposition: Home (Routine Discharge)
Date of Disposition: 05/13/25
Time of Disposition: 23:49
Patient with high blood pressure during this ER visit?: No
Condition: Good
Covid-19: Not Applicable
Discharge Problem:
Hematuria
Instructions: Urinary Tract Infection, Adult (DC), Blood in the Urine (Hematuria), Adult (DC)
Prescriptions:
New
cephalexin 500 mg capsule
500 mg PO TID 7 Days Qty: 21 0RF
No Action
pramipexole 0.5 MG tablet
0.5 mg PO BID
sertraline 25 MG tablet
25 mg PO DAILY
montelukast 10 MG tablet
10 mg PO QPM
Eliquis 5 MG tablet
5 mg PO BID
carvedilol [Coreg] 25 MG tablet
25 mg PO BID
atorvastatin 10 MG tablet
10 mg PO Q48H
cyanocobalamin (vitamin B-12) 1,000 MCG/ML solution
1,000 mcg IM MONTHLY
Rx Instructions:
first of each month
melatonin 5 MG tablet
5 mg PO HSPRN PRN (Reason: sleep)
acetaminophen [Pain Reliever ES(acetaminophn)] 500 mg tablet
1,000 mg PO Q8HPRN PRN (Reason: arthritic pain)
levalbuterol HCl 1.25 mg/3 mL Solution For Nebulization
1.25 mg INHALATION R Q6HPRN PRN (Reason: sob)
carbidopa-levodopa 25-100 mg Tablet
1.5 tab PO QID
pantoprazole 20 mg Tablet,Delayed Release (Dr/Ec)
20 mg PO DAILY
calcium carbonate [Calcium 600] 600 mg calcium (1,500 mg) Tablet
1,200 mg PO DAILY
losartan 25 mg Tablet
12.5 mg PO DAILY
furosemide 20 mg Tablet
20 mg PO BID
cholecalciferol (vitamin D3) [Vitamin D3] 50 mcg (2,000 unit) Tablet
50 mcg PO DAILY
Ejhpupfxgyd-Qkmkj-OHI Complex 402-252-90-0.5 mg Tablet
1 tab PO DAILY
amoxicillin-pot clavulanate 875-125 mg tablet
1 tab PO BID Qty: 10 0RF
Referrals:
Lisset Julien MD [Family Provider, Family Practice]
Activity Restrictions/Additional Instructions:
You came to the emergency department today with concerns of blood in your urine. This could represent an early urinary tract infection. Please take the prescribed antibiotic and follow-up close with a primary care doctor. Return for any
worsening, new or concerning symptoms.
Interventions
Interventions:
*Risk Screen - Suicide Last Done: 05/13/25 19:39
*General Assessment Last Done: 05/13/25 21:56
*Neglect/Abuse Screening Last Done: 05/13/25 19:39
*ED- Fall Risk Assessment Last Done: 05/13/25 21:56
*ED COVID-19 Vaccine History Last Done: 05/13/25 21:56
ED-Female Genitourinary Assessment Last Done: 05/13/25 21:57
Discharge Date and Time
Print Language: UGANDAN
[2025-05-13 23:12] VITALS: BP 159/81
[2025-05-13 23:18] LABS: Hematocrit 41.5 % (37.0-47.0); Hemoglobin 13.4 g/dL (12.0-16.0); Mean Corp Hgb Conc. 32.3 g/dL (33.0-37.0); Mean Corpuscular Volume 86.3 fL (81.0-99.0); Nucleated Red Blood Cells % 0 %; Platelet Count 113 10^3/uL (130-400); Red Cell Dist. Width 15.3 % (11.5-14.5)
[2025-05-13 23:37] LABS: ALT (SGPT) < 10 U/L (0-35); AST (SGOT) 16 U/L (14-36); Albumin 4.4 g/dl (3.5-5.0); Alkaline Phosphatase 60 U/L (38-126); Blood Urea Nitrogen 19 mg/dl (7-17); Calcium 10.5 mg/dl (8.4-10.2); Carbon Dioxide 25 mmol/L (22-30); Chloride 103 mmol/L (98-107); Estimated Creatinine Clearance 49 ml/min; Glucose 85 mg/dl (70-99); Potassium 4.4 mmol/L (3.5-5.1); Sodium 135 mmol/L (135-145); Total Protein 7.1 g/dl (6.3-8.2); eGFR > 60.00
[2025-05-13] MEDS: KEFLEX 500 MG PO (23:56)
== END 2025-05-14 00:03 | disposition home or self-care (01) ==
LOC: EMR 19:33
PROVIDERS: Emergency Medicine; EMERGENCY PHYSICIAN Emergency Medicine; FAMILY PHYSICIAN Family Medicine
DX: R31.9 Hematuria, unspecified (principal); I48.91 Unspecified atrial fibrillation; I11.0 Hypertensive heart disease with heart failure; I50.9 Heart failure, unspecified; E78.00 Pure hypercholesterolemia, unspecified; G20.A1 Parkinson's disease without dyskinesia, without mention of fluctuations; J45.909 Unspecified asthma, uncomplicated; Z95.0 Presence of cardiac pacemaker; Z87.442 Personal history of urinary calculi
CPT/HCPCS: 99284; 74176; 80053; 81003; 81015; 85025

== ENCOUNTER → 2025-06-03 11:25 | Outpatient (REF) | payer MEDICARE, BC, SELFPAY ==
[2025-06-03 12:27] LABS: ALT (SGPT) < 10 U/L (0-35); AST (SGOT) 14 U/L (14-36); Albumin 4.3 g/dl (3.5-5.0); Alkaline Phosphatase 70 U/L (38-126); Blood Urea Nitrogen 22 mg/dl (7-17); Calcium 10.4 mg/dl (8.4-10.2); Carbon Dioxide 28 mmol/L (22-30); Chloride 105 mmol/L (98-107); Glucose 96 mg/dl (70-99); Potassium 4.2 mmol/L (3.5-5.1); Sodium 138 mmol/L (135-145); Total Protein 6.9 g/dl (6.3-8.2); eGFR > 60.00
[2025-06-03 12:29] LABS: Hematocrit 40.6 % (37.0-47.0); Hemoglobin 12.7 g/dL (12.0-16.0); Mean Corp Hgb Conc. 31.3 g/dL (33.0-37.0); Mean Corpuscular Volume 86.6 fL (81.0-99.0); Nucleated Red Blood Cells % 0 %; Platelet Count 120 10^3/uL (130-400); Red Cell Dist. Width 15.3 % (11.5-14.5)
== END ==
LOC: REG 11:25
PROVIDERS: ATTENDING PHYSICIAN Internal Medicine Hematology & Oncology; FAMILY PHYSICIAN Family Medicine
DX: D47.2 Monoclonal gammopathy (principal); M81.0 Age-related osteoporosis without current pathological fracture
CPT/HCPCS: 36415; 80053; 85025

== ENCOUNTER 2025-08-07 08:15 | Emergency (ER) | payer MEDICARE, BC, SELFPAY ==
[2025-08-07 08:18] VITALS: BP 180/89
--- NOTE | 2025-08-07 08:38 | ED.GENMED ---
History of Present Illness
General
Chief Complaint: Nose Bleed
Time Seen by Provider: 08/07/25 08:38
History of Present Illness
History of Present Illness:
FOCUSED PAST MEDICAL HISTORY
- History of nosebleeds, A-fib on Eliquis
REVIEW OF OLD RECORDS
- The patient was seen here with hematuria in May 2025
- In 2023 the patient was seen with a nosebleed and at that time was given lidocaine with epinephrine and Eliquis was held for 2 days
Note:
CHIEF COMPLAINT(S)
Nosebleed
HISTORY OF PRESENT ILLNESS
The patient is an 89-year-old female with a past medical history of atrial fibrillation, presenting to the emergency department with concerns of choking on blood this morning related to a nosebleed. She reported waking up to find blood on her pillow
and experiencing difficulty due to swallowing it. The patient stated, 'I was coughing it up,' and denies any current respiratory distress, feeling 'all right' as of now.
In addition, the patient mentioned a history of experiencing side pain, notably around this time of year. She associated this with a previous diagnosis of kidney stones. Upon examination, tenderness was noted in the mid-axillary line, corresponding
with the start of the oblique muscles. However, no significant pain was elicited upon tapping over the kidney area, suggesting a musculoskeletal origin rather than renal. Son also noted sleeping 'cockeyed,' further suggesting a possible strain
exacerbated by posture during sleep.
PAST MEDICAL AND SURGICAL HISTORY
The patient has a documented history of atrial fibrillation, for which she has had previous ablation treatment.
REVIEW OF SYSTEMS
- Head and Neck: Patient reports a history of nosebleeds, previously treated here in 2003.
- Respiratory: Denies any current difficulty breathing.
- Gastrointestinal: Reports discomfort in the side, historically linked to kidney stones per patient.
PHYSICAL EXAM
General: Alert, no acute distress. Initial systolic 180s then repeat in the 150s
Skin: Warm, dry.
Head: Normocephalic, atraumatic.
Neck: Supple, trachea midline.
Eye, Ear, Nose, Mouth, and Throat: Slight dried blood in left nostril, recent blood in the posterior oropharynx, no active bleeding.
Cardiovascular: Regular heart sounds, no evidence of atrial fibrillation upon auscultation.
Respiratory: Respirations are non-labored.
Gastrointestinal: Abdomen nondistended. Tenderness noted in the mid-axillary line area.
Back: Normal range of motion, Normal alignment. No CVA tenderness
Musculoskeletal: Normal ROM, normal strength. Mild tenderness noted when pressing along the right oblique muscles at the mid axillary line.
Neurological: Alert and oriented to person, place, time, and situation, No focal neurological deficit observed.
Psychiatric: Cooperative, appropriate mood & affect.
PROBLEM LIST
Acute Problems:
- Recent episode of nosebleed with blood ingestion.
- Side pain with tenderness in the mid-axillary region.
Chronic Problems:
- Atrial fibrillation.
PLAN
- Apply cotton balls soaked with phenylephrine to nasal passages to assist in constricting blood vessels.
- Consider the temporary withholding of anticoagulant therapy due to the recent bleeding episode.
- No immediate evidence of active atrial fibrillation at this time, but continue regular follow-up and monitoring.
- Suggest musculoskeletal strain as the likely cause of the side pain; consider evaluation of sleep habits and posture, especially due to the patients observation of feeling hot while sleeping.
DIFFERENTIAL DIAGNOSIS
The Differential Diagnosis includes, in no particular order and is not limited to:
1. Epistaxis (Nosebleed)
2. Posterior oropharyngeal bleeding
3. Musculoskeletal strain of oblique muscles
4. Recurrent renal calculi
5. Upper gastrointestinal bleeding
6. Subconjunctival hemorrhage
7. Respiratory infection with hemoptysis
8. Recurrent atrial fibrillation
9. Anticoagulation-related bleeding
10. Upper respiratory infection with post-nasal drip
SUMMARY OF ENCOUNTER
The patient, an 89-year-old female with a history of atrial fibrillation, presented to the emergency department due to concerns about choking on blood. She had woken up to find blood on her pillow and reported difficulty swallowing the blood.
Examination revealed dried blood in the left nostril and blood in the posterior oropharynx with no active bleeding. She had a blood pressure reading of 151/62, which was noted but not considered critically high. Due to the recent bleeding episode, a
decision was made to temporarily withhold apixaban (Eliquis).
DISPOSITION
Discharge
ASSESSMENT
The patient was assessed with a recent episode of epistaxis leading to blood ingestion, likely exacerbated by elevated blood pressure. There was no serious active bleeding or signs that required more invasive management.
PLAN
The plan includes applying cotton balls soaked with phenylephrine to help constrict blood vessels and stopping anticoagulant therapy temporarily due to recent bleeding.
MEDICATION RECONCILIATION
Apixaban (Eliquis) was noted and held temporarily due to bleeding risks.
MEDICAL DECISION MAKING
-Complexity of Data Reviewed: Chronic conditions affecting care include atrial fibrillation. The Differential Diagnosis includes Epistaxis, Posterior oropharyngeal bleeding, Musculoskeletal strain of oblique muscles, Recurrent renal calculi, Upper
gastrointestinal bleeding, Subconjunctival hemorrhage, Respiratory infection with hemoptysis, Recurrent atrial fibrillation, Anticoagulation-related bleeding, and Upper respiratory infection with post-nasal drip.
-Data:
Category 1
No specific external records or tests mentioned.
Category 3
There was no mention of discussion with other providers.
-Risk: Prescription medication management was adjusted by withholding apixaban (Eliquis) due to bleeding risks. Consideration of admission was not deemed necessary as the patient was stable for outpatient management with regular follow-up.
- I have placed Sinan-Synephrine soaked cotton bilaterally
- BP spontaneously improved but patient is not certain if she did or did not take her blood pressure medication earlier today
- She will hold Eliquis for 1 day
- She thinks she saw Dr. Pabon in the past and will follow-up with him
- Encouraged [id number] saline sprays
- No further nasal bleeding on reassessment
Past History
Past History
ED Past Medical History: Arrthythmia (Atrial fibrillation), Asthma, GERD, HTN, Hypercholesterolemia and Other (Parkinson's)
ED Past Surgical History: Cardiac (Pacemaker, Loop Monitor), Orthopedic and Urological
Social History
Tobacco: Non-smoker
Alcohol: None
Personal:
Living: with family
Phy Exam
Physical Exam
Physical Exam:
See HPI
Course
Orders/Labs/Results
Orders:
Orders
08/07/25 08:45
Phenylephrine 0.5% Regular Spr [Sinan-Synephrine 0.5% Nasal [place]] 1 spray .ROUTE .Twice-MED ONE
Vital Signs
Blood pressure: 157/66
Initial and Last Documented VS:
Initial Vital Signs
Temp Pulse Resp BP Pulse Ox
36.6 C 74 20 180/89 96
08/07/25 08:18 08/07/25 08:18 08/07/25 08:18 08/07/25 08:18 08/07/25 08:18
Last Documented Vital Signs
Temp Pulse Resp BP Pulse Ox
36.6 C 74 20 157/66 94
08/07/25 08:18 08/07/25 08:18 08/07/25 08:18 08/07/25 08:53 08/07/25 08:49
Procedures
Nosebleed
Drug treatment: Neosynephrine
Post treatment bleeding: none- good control
Additional information:
On reassessment, there appears that there may have been some subtle recent bleeding at the left anterior nasal septum
*Pulse Oximetry
SaO2: 96
Oxygen Mode of Delivery: Room air
Patient hypoxic: no
*Critical Care Note
Total Time (30-74mins, 75-104mins- exclusive of procedures): Not Applicable
ED Attending Note
-
Portions of this chart may have been created with voice recognition software.� Occasional wrong word or��sound alike� substitutions may have occurred due to the inherent limitations of voice recognition software.
Discharge Plan
Departure
Patient Disposition: Home (Routine Discharge)
Date of Disposition: 08/07/25
Time of Disposition: 09:13
Patient with high blood pressure during this ER visit?: Yes
Discharge Problem:
Epistaxis
Instructions: Nosebleeds (DC), BLOOD PRESSURE
Prescriptions:
No Action
pramipexole 0.5 MG tablet
0.5 mg PO BID
sertraline 25 MG tablet
25 mg PO DAILY
montelukast 10 MG tablet
10 mg PO QPM
Eliquis 5 MG tablet
5 mg PO BID
carvedilol [Coreg] 25 MG tablet
25 mg PO BID
atorvastatin 10 MG tablet
10 mg PO Q48H
cyanocobalamin (vitamin B-12) 1,000 MCG/ML solution
1,000 mcg IM MONTHLY
Rx Instructions:
first of each month
melatonin 5 MG tablet
5 mg PO HSPRN PRN (Reason: sleep)
acetaminophen [Pain Reliever ES(acetaminophn)] 500 mg tablet
1,000 mg PO Q8HPRN PRN (Reason: arthritic pain)
levalbuterol HCl 1.25 mg/3 mL Solution For Nebulization
1.25 mg INHALATION R Q6HPRN PRN (Reason: sob)
carbidopa-levodopa 25-100 mg Tablet
1.5 tab PO QID
pantoprazole 20 mg Tablet,Delayed Release (Dr/Ec)
20 mg PO DAILY
calcium carbonate [Calcium 600] 600 mg calcium (1,500 mg) Tablet
1,200 mg PO DAILY
losartan 25 mg Tablet
12.5 mg PO DAILY
furosemide 20 mg Tablet
20 mg PO BID
cholecalciferol (vitamin D3) [Vitamin D3] 50 mcg (2,000 unit) Tablet
50 mcg PO DAILY
Lqmmswkzswf-Kjwuj-PFC Complex 830-135-74-0.5 mg Tablet
1 tab PO DAILY
amoxicillin-pot clavulanate 875-125 mg tablet
1 tab PO BID Qty: 10 0RF
cephalexin 500 mg capsule
500 mg PO TID 7 Days Qty: 21 0RF
Referrals:
Lisset Julien MD [Family Provider, Family Practice]
Heriberto Pabon MD [Active, Otology]
Activity Restrictions/Additional Instructions:
Hold Eliquis for today. Use [id number] saline sprays to help keep the nasal mucosa moist. Be sure to take your blood pressure medication. Return if worse or other concerns. Consider following up with ENT for reevaluation.
Interventions
Interventions:
*Risk Screen - Suicide Last Done: 08/07/25 08:18
*Neglect/Abuse Screening Last Done: 08/07/25 08:49
*ED COVID-19 Vaccine History Last Done: 08/07/25 08:21
*ED Influenza Vaccine History Last Done: 08/07/25 08:21
[facility] Fall Risk Assessment Tool Last Done: 08/07/25 08:45
ED-EENT Assessment Last Done: 08/07/25 08:49
Discharge Date and Time
Print Language: VIET[place]ESE
[2025-08-07 08:50] VITALS: BP 157/66
== END 2025-08-07 09:35 | disposition home or self-care (01) ==
LOC: EMR 08:15
PROVIDERS: EMERGENCY PHYSICIAN Emergency Medicine; FAMILY PHYSICIAN Family Medicine
DX: R04.0 Epistaxis (principal); I48.91 Unspecified atrial fibrillation; I10 Essential (primary) hypertension; E78.00 Pure hypercholesterolemia, unspecified; G20.A1 Parkinson's disease without dyskinesia, without mention of fluctuations; J45.909 Unspecified asthma, uncomplicated; K21.9 Gastro-esophageal reflux disease without esophagitis; Z79.01 Long term (current) use of anticoagulants; Z95.0 Presence of cardiac pacemaker
CPT/HCPCS: 99282

== ENCOUNTER → 2025-08-10 09:23 | Outpatient (REF) | payer MEDICARE, BC, SELFPAY ==
[2025-08-10 10:28] LABS: Hematocrit 35.1 % (37.0-47.0); Hemoglobin 11.4 g/dL (12.0-16.0); Mean Corp Hgb Conc. 32.5 g/dL (33.0-37.0); Mean Corpuscular Volume 85.2 fL (81.0-99.0); Nucleated Red Blood Cells % 0 %; Platelet Count 112 10^3/uL (130-400); Red Cell Dist. Width 16.4 % (11.5-14.5)
[2025-08-10 10:55] LABS: Vitamin D, 25-OH*** 27.7 ng/mL (30-80)
[2025-08-10 11:50] LABS: ALT (SGPT) < 10 U/L (0-35); AST (SGOT) 15 U/L (14-36); Albumin 4.0 g/dl (3.5-5.0); Alkaline Phosphatase 70 U/L (38-126); Blood Urea Nitrogen 16 mg/dl (7-17); Calcium 10.2 mg/dl (8.4-10.2); Carbon Dioxide 25 mmol/L (22-30); Chloride 103 mmol/L (98-107); Glucose 90 mg/dl (70-99); Potassium 4.4 mmol/L (3.5-5.1); Sodium 135 mmol/L (135-145); Total Protein 6.6 g/dl (6.3-8.2); eGFR > 60.00
== END ==
LOC: REG 09:23
PROVIDERS: ATTENDING PHYSICIAN Internal Medicine Hematology & Oncology; FAMILY PHYSICIAN Family Medicine
DX: D47.2 Monoclonal gammopathy (principal); M81.0 Age-related osteoporosis without current pathological fracture
CPT/HCPCS: 36415; 80053; 82232; 82306; 82784; 83521; 84155; 84165; 85025; 86334